=== PATIENT | female | born 1940 | race Caucasian/White ===

== ENCOUNTER → 2017-01-05 | Outpatient (CLI) | payer OTHER ==
[2017-01-05 12:58] LABS: BASOPHILS # (AUTO) 0.02 10*3/UL; BASOPHILS % (AUTO) 0.4 % (0-1); EOSINOPHILS % (AUTO) 0.4 % (0-8); HEMATOCRIT 39.2 % (37.0-47.0); HEMOGLOBIN 12.6 g/dL (12.0-16.0); IMM GRAN % (AUTO) 0.9 % (0-5); IMM GRAN# (AUTO) 0.04 10*3/UL; LYMPHOCYTES # (AUTO) 0.97 10*3/uL; LYMPHOCYTES % (AUTO) 21.3 % (10-50); MEAN CORPUSCULAR HEMOGLOBIN 31.5 PG (27-31); MEAN CORPUSCULAR HGB CONC 32.1 g/dL (33-37); MEAN PLATELET VOLUME 11.6 FL (7.4-12.2); MONOCYTES # (AUTO) 0.35 10*3/UL (0.3-0.8); MONOCYTES % (AUTO) 7.7 % (5-15); NEUTROPHILS # (AUTO) 3.16 10*3/UL; NEUTROPHILS % (AUTO) 69.3 % (50-80); RDW COEFFICIENT OF VARIATION 14.4 % (11.5-14.5); WHITE BLOOD COUNT 4.56 10^3/uL (4.8-10.8)
[2017-01-05 13:23] LABS: PLATELET MORPHOLOGY COMMENT NORMAL MORPHOLOGY (NORM)
[2017-01-05 13:33] LABS: LDL CHOLESTEROL,CALCULATED 37.6 mg/dL
[2017-01-05 13:38] LABS: BILIRUBIN,TOTAL 0.2 mg/dL (0.3-1.2); BUN/CREATININE RATIO 23.33 (6-20); CALCIUM 9.2 mg/dL (8.7-10.7); CREATININE 0.6 mg/dL (0.50-1.20); POTASSIUM 4.5 meq/L (3.8-5.2); TOTAL PROTEIN 6.3 g/dL (6.1-8.0)
[2017-01-05 14:26] LABS: HEMOGLOBIN A1C 6.26 % (4.2-6.0); MEAN BLOOD GLUCOSE (CALC) 122.458 mg/dL
== END ==
LOC: MOB LAB 11:25
PROVIDERS: ATTEND Internal Medicine
DX: E11.9 Type 2 diabetes mellitus without complications (principal); E78.5 Hyperlipidemia, unspecified; J44.9 Chronic obstructive pulmonary disease, unspecified; F17.210 Nicotine dependence, cigarettes, uncomplicated
CPT/HCPCS: 36415; 80053; 80061; 82550; 83036; 85025

== ENCOUNTER → 2017-02-12 | Outpatient (CLI) | payer OTHER ==
[2017-02-12 14:27] LABS: BASOPHILS # (AUTO) 0.01 10*3/UL; BASOPHILS % (AUTO) 0.1 % (0-1); EOSINOPHILS # (AUTO) 0.01 10*3/UL; EOSINOPHILS % (AUTO) 0.1 % (0-8); HEMATOCRIT 36.5 % (37.0-47.0); HEMOGLOBIN 12.2 g/dL (12.0-16.0); LYMPHOCYTES # (AUTO) 0.46 10*3/uL; MEAN CORPUSCULAR HGB CONC 33.4 g/dL (33-37); MEAN CORPUSCULAR VOLUME 95.8 FL (81-99); MEAN PLATELET VOLUME 12.4 FL (7.4-12.2); MONOCYTES % (AUTO) 7.4 % (5-15); NEUTROPHILS % (AUTO) 87.4 % (50-80); RED BLOOD COUNT 3.81 10^6/uL (4.20-5.40)
[2017-02-12 14:37] LABS: BILIRUBIN,URINE NEGATIVE (NEG); COLOR,URINE YELLOW; GLUCOSE, URINE (UA) NEGATIVE (NEG); NITRATE,URINE POSITIVE (NEG); PH,URINE 5.5 (5.0-8.5); PROTEIN,URINE NEGATIVE (NEG); UROBILINOGEN,URINE 0.2 mg/dL (0.2)
[2017-02-12 14:38] LABS: CLARITY,URINE SL. CLOUDY (CLEAR); OCCULT BLOOD,URINE TRACE (NEG)
[2017-02-12 14:38] LABS: CALCIUM 8.5 mg/dL (8.7-10.7)
[2017-02-12 14:42] LABS: SQUAMOUS EPITHELIAL CELL,UR RARE; URINE SAMPLE TYPE CLEAN CATCH URINE
[2017-02-12 14:43] LABS: BACTERIA,URINE MANY
[2017-02-12 15:03] LABS: PLATELET MORPHOLOGY COMMENT NORMAL MORPHOLOGY (NORM); RBC MORPHOLOGY COMMENT NORMAL MORPHOLOGY (NORM); WBC MORPHOLOGY COMMENT NORMAL MORPHOLOGY (NORM)
== END ==
LOC: MOB LAB 13:47
PROVIDERS: ATTEND Nurse Practitioner
DX: R63.4 Abnormal weight loss (principal); R30.0 Dysuria; F32.9 Major depressive disorder, single episode, unspecified; R82.99 Other abnormal findings in urine
CPT/HCPCS: 80048; 81001; 85025; 87077; 87088; 87186

== ENCOUNTER → 2017-02-26 | Outpatient (CLI) | payer OTHER | LOC: MMPC 10:00 | PROVIDERS: ATTEND Podiatrist Foot & Ankle Surgery | DX: L60.3 Nail dystrophy (principal); B35.1 Tinea unguium; E11.9 Type 2 diabetes mellitus without complications; I73.9 Peripheral vascular disease, unspecified; M21.6X1 Other acquired deformities of right foot; M20.12 Hallux valgus (acquired), left foot; M21.6X2 Other acquired deformities of left foot; M20.11 Hallux valgus (acquired), right foot; L60.9 Nail disorder, unspecified | CPT/HCPCS: 11755 ×2; 99213; G0463 ==

== ENCOUNTER 2017-03-31 16:43 | Inpatient (IN) | payer OTHER ==
[2017-03-31] MEDS ORDERED: ONDANSETRON 4 MG/2 ML VIAL IVP ONE (17:24)
[2017-03-31] MEDS ORDERED: Sodium Chloride 0.9% 1,000 ML PRIMARY IV ONE (17:24)
[2017-03-31] MEDS ORDERED: MORPHINE SULFATE 4 MG/1 ML IVP ONE (17:24)
--- NOTE | 2017-03-31 17:27 | PDOC ---
Nausea/Vomiting/Diarrhea HPI - General Chief Complaint: Nausea / Vomiting / Diarrhea Stated Complaint: VOMITING/DIARRHEA/WEAKNESS x5 DAYS Date Seen by Provider: 03/31/17 Time Seen by Provider: 17:22 Source: POSITIVE: Patient Exam Limitations: POSITIVE: No limitations Nurse's Notes Reviewed & Considered: Yes - History of Present Illness Initial Comments: This is a 76-year-old cachectic appearing female who is having vomiting. She is also complaining of abdominal pain in the suprapubic periumbilical and epigastric region. She has associated diarrhea. She denies any fevers but does have some sweats, she denies any chills. She denies any hematuria or dysuria. She denies any shortness of breath or chest pain. She does have a mild headache. Body Location Affected: REPORTS: Abdomen Timing: REPORTS: Constant Duration: Unknown Severity: Severe Quality: REPORTS: Cramping, "Pain" Abdominal Pain Onset Location: REPORTS: Epigastric, Periumbilical, Suprapubic Abdominal Pain Radiation: REPORTS: No radiation Context: REPORTS: None Modifying Factors: improves with: Nothing Associated Symptoms: REPORTS: Vomiting, Diarrhea, Abdominal Pain, Cramping Similar Symptoms Previously: No Recent Care Received: REPORTS: Denies Any Prior Injuries Related to Current Complaint?: No - Patient Home Medications Home Medications: Home Medications Multivitamin Tab [Thera Tab] 1 tab PO DAILY #30 tablet 01/10/15 Aspirin [Aspir 81] 1 tab PO DAILY tab 12/18/15 Lactose-Reduced Food [Ensure Plus] 8 oz PO 4-5X day #237 ml 12/18/15 Vit A,C & E/Lutein/Minerals [Ocuvite With Lutein Tablet] 1 each PO BID tab 07/25 Lisinopril 1 tab PO DAILY #30 tab 08/26/16 Pantoprazole Sodium 1 tab ORAL QD #30 tab 11/17/16 Oxycodone HCl/Acetaminophen [Oxycodone-Acetaminophen 10-325] 1 tab PO Q6H PRN # 120 tab 01/05/17 Tiotropium [place] [Spiriva] 1 puff INH DAILY #1 inh 02/11/17 Simvastatin 40 mg PO DAILY #30 tab 03/05/17 - Patient Allergies Allergies/Adverse Reactions: Allergies Allergy/AdvReac Type Severity Reaction Status Date / Time codeine [Codeine] Allergy Severe Anaphylaxis Verified 03/31/17 17:55 sulfamethoxazole Allergy NAUSEA Verified 03/31/17 17:55 [From Bactrim] trimethoprim [From Bactrim] Allergy NAUSEA Verified 03/31/17 17:55 Past Medical History - heen HEENT History: Cataracts, Dentures/Partials Additional HEENT History: wears glasses: unsure why Cardiovascular History: Hyperlipidemia Respiratory History: COPD, Other (please comment) Additional Respiratory History: CHRONIC BRONCHITIS Gastrointestinal History: GERD Genitourinary History: Denies History Endocrine History: Type 2 Diabetes (oral) Additional Endocrine History: says she stopped meds because she no longer has diabetes Musculoskeletal History: Arthritis, Muscle Weakness, Limited ROM, Other (please comment) Prosthesis or Implant: No Additional Musculoskeletal History: 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 Anesthesia Reactions: No Malignant Hyperthermia: No Significant Family History: No pertinent family hx ROS - Limitations ROS Limitations: No Limitations Constitution: REPORTS: Diaphoresis Cardiovascular: REPORTS: Denies Cardiac Symptoms Respiratory: REPORTS: Denies Resp Symptoms Neurological: REPORTS: Denies Neuro Symptoms Gastrointestinal: REPORTS: Abdominal Pain, Nausea, Vomitting, Diarrhea Endocrine: REPORTS: Fatigue Musculoskeletal: REPORTS: Denies MS Symptoms Genitourinary: REPORTS: Denies Symptoms Eyes: REPORTS: Denies Symptoms ENT: REPORTS: Denies Symptoms Skin: REPORTS: Denies Skin Symptoms Lympathic: REPORTS: Denies Lympathic Symptoms Immunologic: POSITIVE: Denies Symptoms Psychiatric: POSITIVE: Denies Psych Symptoms Nausea/Vomiting/Diarrhea Exam - General Appearance General Appearance: POSITIVE: Alert, Cooperative, No Evidence of Trauma, Anxious , Moderate Distress, Other (Cachectic appearing female with what bruises on her bilateral legs and arms.) - HEENT HEENT: POSITIVE: Head Inspection Nml, Eyes Inspection Nml, Ears Inspection Nml, Nose Inspection Nml, Oral/Dental Inspect. Nml, Pharynx Inspect. Nml, PERRL, EOMI - Neck Neck: POSITIVE: Supple, Normal Inspection, Non Tender - Respiratory Respiratory: POSITIVE: No Respiratory Distress, Breath Sounds Normal, Chest Non- Tender - Cardiovascular Cardiovascular: POSITIVE: Regular Rate and Rhythm, Heart Sounds Normal - Chest Chest: POSITIVE: Non Tender - Abdomen Abdomen: Soft: (All Quadrants), Normal Bowel Sounds: (All Quadrants), Tenderness Noted: (RLQ), (LLQ), (LUQ) - Back Back: POSITIVE: Normal Inspection - Skin Skin: POSITIVE: Intact, Normal For Race, Warm, Dry, No Rash - Extremities Extremity: Non-Tender: (All Extremities), Normal ROM: (All Extremities), Normal Inspection: (All Extremities), Pelvis Stable: (All Extremities) - Neurological / Psychological Neurological: POSITIVE: Affect Apporpriate, Oriented X3, Motor Normal, Sensation Normal N/V/D Progress - Results Reviewed by me Xrays/CTs/US Reviewed by me: Yes Discussed with Radiologist: Yes Lab Results Reviewed: Yes Lab Results:: Laboratory Results 03/31/17 03/31/17 03/31/17 Range/Units 18:19 18:35 19:00 WBC 10.28 (4.8-10.8) 10^3/uL RBC 3.67 L (4.20-5.40) 10^6/uL Hgb 12.0 (12.0-16.0) g/dL Hct 35.6 L (37.0-47.0) % MCV 97.0 (81-99) FL MCH 32.7 H (27-31) PG MCHC 33.7 (33-37) g/dL RDW Std Deviation 57.2 H (39-50) fL RDW Coeff of Eligio 16.8 H (11.5-14.5) % Plt Count 195 (140-350) 10*3/uL MPV 11.4 (7.4-12.2) FL Immature Gran % (Auto) 0.3 (0-5) % Neut % (Auto) 87.8 H (50-80) % Lymph % (Auto) 6.4 L (10-50) % Woods % (Auto) 5.4 (5-15) % Eos % (Auto) 0 (0-8) % Baso % (Auto) 0.1 (0-1) % Immature Gran # (Auto) 0.03 10*3/UL Neut # (Auto) 9.03 10*3/UL Lymph # (Auto) 0.66 10*3/uL Woods # (Auto) 0.55 (0.3-0.8) 10*3/UL Eos # (Auto) 0 10*3/UL Baso # (Auto) 0.01 10*3/UL WBC Morphology Comment Normal morphology (NORM) Plt Morphology Comment Normal morphology (NORM) RBC Morph Comment Normal morphology (NORM) PT 13.6 H (9.7-11.4) secs INR 1.31 (0.00-5.90) N/A VBG pH (7.32-7.42) VBG pCO2 (45-55) mmHg VBG HCO3 (22-26) mmol/L VBG Base Excess (-2-2) MMOL/L Sodium 136 (135-145) meq/L Potassium 4.2 (3.8-5.2) meq/L Chloride 106 (98-112) meq/L Carbon Dioxide 25 (23-33) meq/L Anion Gap 5 (5-20) BUN 7 (7-22) mg/dL Creatinine 0.8 (0.50-1.20) mg/dL Estimated GFR (>60 ml/min/1.73m(2)) BUN/Creatinine Ratio 8.75 (6-20) Glucose 148 H (78-110) mg/dL Calculated Osmolality 282.0 (267-292) mOsm/kg Lactic Acid 2.6 H (0.70-2.10) MMOL/L Calcium 7.3 L (8.7-10.7) mg/dL Magnesium 1.5 L (1.6-2.4) mg/dL Total Bilirubin 0.4 (0.3-1.2) mg/dL AST 48 H (8-39) IU/L ALT 54 H (9-52) IU/L Alkaline Phosphatase 144 H (38-126) IU/L Troponin I < 0.012 (< 0.040) ng/mL C-Reactive Protein 0.5 (0.0-0.9) mg/dL NT-Pro-B Natriuret Pep 975 H (0-450) PG/ML Total Protein 4.3 L (6.1-8.0) g/dL Albumin 1.7 L (3.5-4.8) g/dL Globulin 2.6 (2.50-4.10) g/dL Albumin/Globulin Ratio 0.60 L (1.3-2.0) mg/g Ur Collection Type Urine Color Urine Clarity (CLEAR) Urine pH (5.0-8.5) Ur Specific [place] (1.005-1.030) Urine Protein (NEG) mg/dl Urine Glucose (UA) (NEG) mg/dL Urine Ketones (NEG) Urine Occult Blood (NEG) Urine Nitrate (NEG) Urine Bilirubin (NEG) Urine Urobilinogen (0.2) EU/dL Ur Leukocyte Esterase (NEG) Urine RBC (NONE) /hpf Urine WBC (NONE) Ur Squamous Epith Cells (NONE) Ur Renal Epithelial Cell (NONE) Urine Crystals Urine Bacteria (NONE) Urine Casts (NONE) Urine Mucus (NONE) Urine Trichomonas (NONE) Urine Yeast (NONE) Ur Culture Indicated? 03/31/17 03/31/17 Range/Units 19:06 20:25 WBC (4.8-10.8) 10^3/uL RBC (4.20-5.40) 10^6/uL Hgb (12.0-16.0) g/dL Hct (37.0-47.0) % MCV (81-99) FL MCH (27-31) PG MCHC (33-37) g/dL RDW Std Deviation (39-50) fL RDW Coeff of Eligio (11.5-14.5) % Plt Count (140-350) 10*3/uL MPV (7.4-12.2) FL Immature Gran % (Auto) (0-5) % Neut % (Auto) (50-80) % Lymph % (Auto) (10-50) % Woods % (Auto) (5-15) % Eos % (Auto) (0-8) % Baso % (Auto) (0-1) % Immature Gran # (Auto) 10*3/UL Neut # (Auto) 10*3/UL Lymph # (Auto) 10*3/uL [place] # (Auto) (0.3-0.8) 10*3/UL Eos # (Auto) 10*3/UL Baso # (Auto) 10*3/UL WBC Morphology Comment (NORM) Plt Morphology Comment (NORM) RBC Morph Comment (NORM) PT (9.7-11.4) secs INR (0.00-5.90) N/A VBG pH 7.36 (7.32-7.42) VBG pCO2 39 L (45-55) mmHg VBG HCO3 22 (22-26) mmol/L VBG Base Excess -3 L (-2-2) MMOL/L Sodium (135-145) meq/L Potassium (3.8-5.2) meq/L Chloride (98-112) meq/L Carbon Dioxide (23-33) meq/L Anion Gap (5-20) BUN (7-22) mg/dL Creatinine (0.50-1.20) mg/dL Estimated GFR (>60 ml/min/1.73m(2)) BUN/Creatinine Ratio (6-20) Glucose (78-110) mg/dL Calculated Osmolality (267-292) mOsm/kg Lactic Acid (0.70-2.10) MMOL/L Calcium (8.7-10.7) mg/dL Magnesium (1.6-2.4) mg/dL Total Bilirubin (0.3-1.2) mg/dL AST (8-39) IU/L ALT (9-52) IU/L Alkaline Phosphatase (38-126) IU/L Troponin I (< 0.040) ng/mL C-Reactive Protein (0.0-0.9) mg/dL NT-Pro-B Natriuret Pep (0-450) PG/ML Total Protein (6.1-8.0) g/dL Albumin (3.5-4.8) g/dL Globulin (2.50-4.10) g/dL Albumin/Globulin Ratio (1.3-2.0) mg/g Ur Collection Type Cath specimen Urine Color Yellow Urine Clarity Slightly cloudy (CLEAR) Urine pH 5.5 (5.0-8.5) Ur Specific [place] <=1.005 (1.005-1.030) Urine Protein Negative (NEG) mg/dl Urine Glucose (UA) Negative (NEG) mg/dL Urine Ketones Negative (NEG) Urine Occult Blood Trace-intact H (NEG) Urine Nitrate Positive H (NEG) Urine Bilirubin Negative (NEG) Urine Urobilinogen 0.2 (0.2) EU/dL Ur Leukocyte Esterase Moderate (NEG) Urine RBC 0-1 (NONE) /hpf Urine WBC 5-10 (NONE) Ur Squamous Epith Cells None (NONE) Ur Renal Epithelial Cell None (NONE) Urine Crystals None Urine Bacteria Many (NONE) Urine Casts None (NONE) Urine Mucus None (NONE) Urine Trichomonas None (NONE) Urine Yeast None (NONE) Ur Culture Indicated? Culture set - Patient's Progress Pain Medication Addressed: POSITIVE: Yes Re-examine Time: 20:54 Status: POSITIVE: Improved MDM / ED Course: Patient was evaluated, an IV started after much difficulty, blood drawn and sent to the lab for studies which included blood cultures, radiographic examinations were obtained. Patient received 2 L of normal saline, morphine sulfate, Zofran, 2 g of Rocephin. Findings: CBC shows white count 10.28 , hemoglobin was at 12, magnesium was low at 1.5, urine shows nitrite positive, comprehensive metabolic panel shows calcium slightly low, LFTs elevated, alkaline phosphatase is also elevated. CT scan shows perinephric fat stranding present, thickening and enhancement of the stomach wall consistent with gastritis, possible cholelithiasis. Bilateral pleural effusions. Assessment: #1 pyelonephritis. #2 gastritis. #3 hypomagnesemia. Plan: Admission, IV antibiotics, hydration. - Consult Consult (If Yes, Name of Consulting MD & Time Called): Yes (Dr. Lu [id number]) Consulting MD will see pt:: POSITIVE: [facility] [place] Admit Counseled: POSITIVE: Patient, RE: Lab Results, RE: Radiology Results, RE: DX Patient Care Time - Estimated PCT Patient Care Time (In Minutes): 45 Vital Signs - VS Reviewed Vital Signs Reviewed: Yes Discharge Clinical Impression: Gastroenteritis, Nausea and vomiting, UTI (urinary tract infection), Pleural effusion Discharge Disposition: Admit to Inpatient Condition: Stable Date Decision to Admit to Inpatient: 03/31/17 Time Decision to Admit to Inpatient: 20:53
[2017-03-31 18:22] LABS: BASOPHILS # (AUTO) 0.01 10*3/UL; BASOPHILS % (AUTO) 0.1 % (0-1); EOSINOPHILS # (AUTO) 0 10*3/UL; EOSINOPHILS % (AUTO) 0 % (0-8); HEMATOCRIT 35.6 % (37.0-47.0); LYMPHOCYTES # (AUTO) 0.66 10*3/uL; MEAN CORPUSCULAR HEMOGLOBIN 32.7 PG (27-31); MEAN CORPUSCULAR HGB CONC 33.7 g/dL (33-37); MEAN PLATELET VOLUME 11.4 FL (7.4-12.2); MONOCYTES # (AUTO) 0.55 10*3/UL (0.3-0.8); MONOCYTES % (AUTO) 5.4 % (5-15); NEUTROPHILS # (AUTO) 9.03 10*3/UL; NEUTROPHILS % (AUTO) 87.8 % (50-80); RED BLOOD COUNT 3.67 10^6/uL (4.20-5.40)
[2017-03-31 18:30] LABS: PLATELET MORPHOLOGY COMMENT NORMAL MORPHOLOGY (NORM); RBC MORPHOLOGY COMMENT NORMAL MORPHOLOGY (NORM); WBC MORPHOLOGY COMMENT NORMAL MORPHOLOGY (NORM)
[2017-03-31 19:18] LABS: VENOUS PH 7.36 (7.32-7.42)
[2017-03-31 19:25] LABS: BUN/CREATININE RATIO 8.75 (6-20); C-REACTIVE PROTEIN 0.5 mg/dL (0.0-0.9); CALCIUM 7.3 mg/dL (8.7-10.7); MAGNESIUM 1.5 mg/dL (1.6-2.4); SERUM ALBUMIN 1.7 g/dL (3.5-4.8)
[2017-03-31] MEDS ORDERED: Magnesium Sulfate 2gm (Premix) 2 GM in Premix 1 BAG IV ONE (20:08)
[2017-03-31 20:22] LABS: BILIRUBIN,URINE NEGATIVE (NEG); CLARITY,URINE Slightly Cloudy (CLEAR); COLOR,URINE YELLOW; GLUCOSE, URINE (UA) NEGATIVE (NEG); NITRATE,URINE POSITIVE (NEG); OCCULT BLOOD,URINE Trace-intact (NEG); PH,URINE 5.5 (5.0-8.5); PROTEIN,URINE NEGATIVE (NEG); UROBILINOGEN,URINE 0.2 EU/dL (0.2)
[2017-03-31 20:26] LABS: BACTERIA,URINE MANY; RBC,URINE 0-1 /hpf; URINE SAMPLE TYPE CATH SPECIMEN
--- NOTE | 2017-03-31 20:28 | DI ---
CT ABDOMEN SCAN WITH IV CONTRAST, 03/31/2017 5:24 PM : Clinical History: Abdominal pain with nausea and vomiting. Previous Exam: 09/23/2016. Scans are performed from the lower lung bases through the liver and kidneys with IV contrast. 75 ml o f Isovue 300 was injected IV. No oral or rectal contrast was ordered. There are bilateral small pleural effusions, slightly larger on the left side in the right. No acute infiltrate is present in the lower lobes. The heart shows calcifications in the LAD, left circumflex artery, and right coronary artery. No obvious clot is seen in in the visualized portions of the left atrium or the left ventricle. The stomach is normal in size but shows marked enhancement suggesting t here may be an acute gastritis. The liver is normal. In the dependent portion of the body of the gall bladder is a small high density lesion that may represent a small gallstone in the range of 3-5 mm. T here is no edema of the gallbladder wall to indicate acute cholecystitis. The right adrenal gland, sp joseph, and pancreas are normal. The pancreas does appear atrophic and there are calcifications but the se are in the splenic artery. There is a 15 mm mass in the left adrenal gland. Both kidneys are marc l in size, shape, position and contour. Perfusion to the right kidney is normal. In the left kidney, there is absent perfusion of the lower pole medullary and cortical tissue. Comparison with the previo us study shows it this area had a normal perfusion pattern. Extensive vascular calcifications are pre sent in both kidneys. The differential for the defect would be between an acute renal infarct versus pyelonephritis. There is some stranding in the perinephric fat of the left kidney. There is no hydron ephrosis or hydroureter. No renal or ureteral calculi are present. There are no abnormal retrocrural or periaortic nodes. There is a trace amount of ascites in Morison's pouch surrounding the gallbladde r. READIN. The stomach is normal in size but shows diffuse enhancement suggesting there may be diffuse mucos al thickening secondary to acute gastritis. 2. There is a perfusion defect in the lower and posterior aspect of the left kidney that is new sinc e the previous CT scan from 09/23/2016. Perinephric stranding is present in the perinephric fat in th e differential for the defect and the stranding would be between pyelonephritis and a renal infarct. Extensive vascular calcifications are present in both kidneys. 3. Small bilateral pleural effusions, slightly larger on the left side than the right. Coronary arjun ry disease manifested by calcifications in the LAD, left circumflex artery, and the right coronary ar caprice. No obvious clot is seen in either in the left ventricle or in the left atrium. 4. Minimal ascites in Morison's pouch. 5. Possible cholelithiasis. CT PELVIS SCAN WITH IV CONTRAST, 03/31/2017 5:24 PM: Clinical History: See above. Previous Exam: 09/23/2016. Scans are performed from just superior to the umbilicus to the symphysis pubis with IV contrast. This is the same bolus of contrast used for the CT scans of the abdomen. Scans through the lower abdomen and pelvis show no masses. There is a small amount of ascites in the pelvis. There is no adenopathy. New the ileocecal valve nor the appendix are identified with certaint y. There is no inflammatory mass either in the right lower quadrant or in the region where the cecum would be located. The small bowel and colon show normal enhancement throughout. There are no hernias. The patient is status post hysterectomy and bilateral salpingo-oophorectomy. READING: Except for a small amount of ascites, the study is normal.
[2017-03-31] MEDS ORDERED: Pantoprazole Inj 40 MG in Normal Saline Flush 10 ML IVP ONE (20:51)
[2017-03-31] MEDS ORDERED: cefTRIAXone Inj 2 GM in Sodium Chloride 0.9% 100 ML IV ONE (20:51)
--- NOTE | 2017-03-31 21:17 | EKG ---
[address] [place] [address] Measurements Intervals [place] Rate: 74 P: 78 VA: 154 QRS: 35 QRSD: 68 T: 60 QT: 405 QTc: 433 Interpretive Statements SINUS RHYTHM WITH OCCASIONAL SUPRAVENTRICULAR PREMATURE COMPLEXES LOW QRS VOLTAGE [QRS DEFLECTION < 0.5/1.0 mV IN LIMB/CHEST LEADS] Compared to ECG 11/20/2014 16:36:47 T-wave abnormality no longer present Electronically Signed On 04-01-17 07:50:07 MDT by Marcelo Corbin MD [email or web address]
[2017-03-31] MEDS ORDERED: oxyCODONE/APAP 10/325 Tab 1 EACH TAB PO PRN (22:00)
[2017-03-31] MEDS ORDERED: LACTOSE REDUCED FOOD PO SCH (22:00)
[2017-03-31] MEDS ORDERED: Magnesium Sulfate 1gm (Premix) 1 GM in Dextrose 1 BAG IV ONE (22:00)
[2017-03-31] MEDS ORDERED: [UNRECOGNIZED DRUG - OTHER] PO SCH (22:00)
[2017-03-31] MEDS ORDERED: LIDOCAINE W/ SODIUM BICARB 0.5 ML SYR SUBD PRN (22:00)
[2017-03-31] MEDS: HEPARIN 5000 UNIT/1 ML SUBCUT SCH (22:42)
[2017-03-31] MEDS: Cefotaxime Inj 2 GM in Sodium Chloride 0.9% 100 ML IV SCH (22:42)
--- NOTE | 2017-03-31 23:06 | DI ---
AP /LATERAL CHEST X-RAY, 03/31/2017 8:11 PM : Clinical History: Cachexia. Previous Exam: 12/25/2014. There is no acute soft tissue or bony abnormality. The patient is status post ORIF of a fracture of t he surgical neck of the right humerus. Heart size is normal. There is no acute infiltrate. There are bilateral small pleural effusions, larger on the left side than the right. There is left lower lobe a telectasis. Mediastinal structures are normal. There are no pulmonary nodules. Readin. Small bilateral pleural effusions, larger on the left side than the right. There is some left low er lobe atelectasis. 2. The remainder of the exam is normal.
[2017-04-01 05:11] LABS: BASOPHILS # (AUTO) 0.01 10*3/UL; BASOPHILS % (AUTO) 0.1 % (0-1); EOSINOPHILS # (AUTO) 0.01 10*3/UL; EOSINOPHILS % (AUTO) 0.1 % (0-8); HEMATOCRIT 34.9 % (37.0-47.0); HEMOGLOBIN 11.7 g/dL (12.0-16.0); LYMPHOCYTES # (AUTO) 0.83 10*3/uL; MEAN CORPUSCULAR HEMOGLOBIN 32.1 PG (27-31); MEAN CORPUSCULAR HGB CONC 33.5 g/dL (33-37); MEAN CORPUSCULAR VOLUME 95.6 FL (81-99); MONOCYTES # (AUTO) 0.54 10*3/UL (0.3-0.8); MONOCYTES % (AUTO) 7.7 % (5-15); NEUTROPHILS # (AUTO) 5.59 10*3/UL; NEUTROPHILS % (AUTO) 79.9 % (50-80); RED BLOOD COUNT 3.65 10^6/uL (4.20-5.40)
[2017-04-01 05:21] LABS: PLATELET MORPHOLOGY COMMENT NORMAL MORPHOLOGY (NORM); RBC MORPHOLOGY COMMENT NORMAL MORPHOLOGY (NORM); WBC MORPHOLOGY COMMENT NORMAL MORPHOLOGY (NORM)
[2017-04-01 05:23] LABS: BUN/CREATININE RATIO 8.57 (6-20); CALCIUM 7.3 mg/dL (8.7-10.7); SERUM ALBUMIN 1.8 g/dL (3.5-4.8)
[2017-04-01] MEDS: HEPARIN 5000 UNIT/1 ML SUBCUT SCH ×3 (05:27→21:54)
[2017-04-01] MEDS: TIOTROPIUM BROMIDE 18 MCG CAPSULE INH SCH (07:10)
[2017-04-01] MEDS ORDERED: Simvastatin Tab 40 MG TAB PO SCH ×2 (09:00→21:00)
[2017-04-01] MEDS: Pantoprazole Inj 40 MG in Normal Saline Flush 10 ML IVP SCH ×2 (09:31→20:22)
[2017-04-01] MEDS: ASPIRIN EC 81 MG TABLET PO SCH (09:32)
[2017-04-01] MEDS: LISINOPRIL 5 MG TABLET PO SCH ×2 (09:33→09:38)
[2017-04-01] MEDS: Cefotaxime Inj 2 GM in Sodium Chloride 0.9% 100 ML IV SCH (10:11)
--- NOTE | 2017-04-01 11:11 | DI ---
ABDOMINAL ULTRASOUND, 04/01/2017 7:00 AM: Clinical History: Cholelithiasis. Previous Exam: None at this facility. Comparison is made with the CT scan of the abdomen and pelvis f rom 03/31/2017. Scans are performed through the right and left upper quadrants in multiple projections. The gallbladder is well distended and has a normal wall thickness. There are at least 2 small gallsto kiran present and these are associated with acoustical shadowing. There is no evidence of acute cholecy stitis. No Gutierrez's sign is elicited. A small amount of fluid is present in Morison pouch. Common mima e duct measures 2 mm. The visualized portions of the right and left lobes of the liver and the spleen are normal. Both kidneys are of normal shape, position, and contour. The right kidney measures 100 m m and the left kidney measures 92 mm. There is no hydronephrosis or hydroureter. There is vascular fl ow to both kidneys although there is insufficient resolution to detect whether there is absent flow i n the posterior and inferior aspect of the left kidney as was seen on the CT scan from the day before . The head, neck, and proximal body of the pancreas are visualized and that structure is normal. The IVC and aorta are normal. There are bilateral pleural effusions. READIN. Cholelithiasis without evidence of cholecystitis. There is no Gutierrez's sign. 2. There is a trace amount of ascites in Morison's pouch and over the dome of the liver. 3. The liver, spleen, pancreas and both kidneys have a normal appearance. No abnormality is seen in the lower pole of the left kidney where a perfusion defect was noted on the CT scan from the day befo re. The aorta and IVC are also normal. 4. Small bilateral pleural effusions.
[2017-04-01] MEDS: NICOTINE 21 MG /DAY PATCH TRANSDERM SCH (15:44)
[2017-04-01] MEDS ORDERED: cefTRIAXone Inj 2 GM in Sodium Chloride 0.9% 100 ML IV SCH (20:00)
[2017-04-01] MEDS ORDERED: Magnesium Sulfate 2gm (Premix) 2 GM in Premix 1 BAG IV ONE (22:13)
--- NOTE | 2017-04-01 22:26 | PDOC ---
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 She comes in complaining of not feeling well for the past week. She states that she's had some nausea, intermittent vomiting, and diarrhea. She denies any chest pain, shortness breath or cough. She is on a standard oxygen at 2 L per nasal cannula. She states she is just not been feeling very well and she is only been able to eat Ensure. She denied abdominal pain and states that the Ensure just "runs right through me". She does admit to depression, and states that she wants to be discharged to a half-way after discharge. She states she still weak, deconditioned, and her endurance is significantly limited. She denies fever or chills. She states she is trying to eat and try to ensure as her interventions, and she's not sure what is making her symptoms worse. Her labs were notable for albumin level that is below 2. It has been gradually declining since 2013. I will note , that in addition to her depression, she states she just has not been able to see any improvements with antidepressants. Aside from a CT scan showing possible renal infarct which not to be the case with ultrasound, possible cholecystitis, which again appeared negative on ultrasound, the imaging was significant for bilateral small pleural effusions. There did not appear to be any obstruction or pancreatitis issues. Past Medical History Medical History: 1. Dependent COPD, 2 L per nasal cannula, chronic hypoxemic respiratory failure. 2. Diabetes is, diet-controlled. 3. protein Calorie Malnutrition. 4. History of oral cancer with previous radiation and chemotherapy. 5. History of pleural effusion that was drained back in past. 6. Hx of cavitary lesion on chest CT in past. 7. History of alcohol abuse in the past, denies alcohol use today. 8. History of Humoral fracture status post open reduction and internal fixation back in June 2014. Surgical History: 1. neck surgery in 2013. 2. . 3. carpal tunnel release. 4. cataract surgery. 5. thoracentesis of lung in 2013 Family History: Reviewed an Not Pertinent Pertinent Family History: significant for coronary artery disease Past Social History: smokes, quit drinking a year ago. has healthy children, and a daughter in [place], [place]. Lives with a significant other, Ed. Tobacco Use: Current Every Day Smoker Substance Use Type: None Alcohol Use: Other (history of alcohol use/abuse, quit in 2013) Medication / Allergies Home Medications: Home Medications Medication Instructions Recorded Confirmed Type Multivitamin Tab [Thera Tab] 1 tab PO DAILY #30 tablet 01/10/15 03/31/17 Rx Aspirin [Aspir 81] 1 tab PO DAILY tab 12/18/15 03/31/17 History Lactose-Reduced Food [Ensure Plus] 8 oz PO 4-5X day #237 ml 12/18/15 03/31/17 Clinic Vit A,C & E/Lutein/Minerals 1 each PO BID tab 12/18/15 03/31/17 History [Ocuvite With Lutein Tablet] Lisinopril 1 tab PO DAILY #30 tab 08/26/16 03/31/17 Clinic Pantoprazole Sodium 1 tab ORAL QD #30 tab 11/17/16 03/31/17 Clinic Oxycodone HCl/Acetaminophen 1 tab PO Q6H PRN #120 tab 01/05/17 03/31/17 Clinic [Oxycodone-Acetaminophen 10-325] Tiotropium [place] [Spiriva] 1 puff INH DAILY #1 inh 02/11/17 03/31/17 Clinic Simvastatin 40 mg PO DAILY #30 tab 03/05/17 03/31/17 Clinic Allergies/Adverse Reactions: Allergies Allergy/AdvReac Type Severity Reaction Status Date / Time codeine [Codeine] Allergy Severe Anaphylaxis Verified 03/31/17 17:55 sulfamethoxazole Allergy NAUSEA Verified 03/31/17 17:55 [From Bactrim] trimethoprim [From Bactrim] Allergy NAUSEA Verified 03/31/17 17:55 Review of Systems - Review of Systems All Systems: Reviewed & No Additional Complaints Except as Stated (I did a 12 point review of systems and it was negative exept as per HPI) Exam - Vitals Vital Signs: Vital Signs Temperature 98.6 F Temperature Source Temporal Artery Scan Pulse Rate [Pulse Oximeter] 84 Pulse Rate 82 Respiratory Rate 20 Blood Pressure [Right Arm] 139/52 Pulse Ox 95 Oxygen Flow Rate 2 Oxygen Delivery Method Nasal Cannula Height 5 ft 4 in Weight 100 lb 3.2 oz - General General Appearance: POSITIVE: No Acute Distress, Cooperative, Thin - Head Head Exam: POSITIVE: Normal Inspection, Normocephalic, Atraumatic - Eye Eye Exam: POSITIVE: EOMI, No Scleral Icterus - ENT ENT Exam: POSITIVE: Mucous Membranes Dry - Neck Neck Exam: POSITIVE: Normal Inspection, No Tenderness, No Thyromegaly - Respiratory Respiratory Exam: POSITIVE: Breathing Non Labored, Normal to Percussion and Palpation, Decreased Breath Sounds - Cardiovascular Cardiovascular Exam: POSITIVE: RRR, No Murmur, No Clicks, No Gallops, No Rubs, No JVD - GI/Abdominal GI/Abdominal Exam: POSITIVE: Normal Bowel Sounds, Non Tender, Non Distended, Soft - Rectal Rectal Exam: POSITIVE: Deferred - External Exam: POSITIVE: Deferred Exam: POSITIVE: Cummings Catheter in Place (I had cummings catheter put in because the bladder looked markedly distended on CT scan of abdomen and pelvis, PVR was 450 mL, urine looks clear.) - Extremities Extremities Exam: POSITIVE: No Edema Present, No Cyanosis Present, Clubbing Present - Back Back Exam: POSITIVE: No CVA Tenderness - Neurological Neurological Exam: POSITIVE: Alert, Oriented x 3, No Facial Droop, Speech Intact / Clear, Moves All Extremities Equally Additional Neurological Exam Details: globally very weak - Psychiatric Psychiatric Exam: POSITIVE: Flat Affect, Depressed - Integumentary Integumentary Exam: POSITIVE: Normal Color, Warm, Intact Additional Integumentary Exam Details: stasis color changes in lower extremities, on the left, scarring from prior ulcer. - Central Line Examination Central Line Present on Admission: No Results - Labs CBC and BMP: 04/01/17 04:25 04/01/17 04:25 Labs - Last 24 Hours: Laboratory Results 04/01/17 Range/Units 04:25 WBC 7.01 (4.8-10.8) 10^3/uL RBC 3.65 L (4.20-5.40) 10^6/uL Hgb 11.7 L (12.0-16.0) g/dL Hct 34.9 L (37.0-47.0) % MCV 95.6 (81-99) FL MCH 32.1 H (27-31) PG MCHC 33.5 (33-37) g/dL RDW Std Deviation 54.9 H (39-50) fL RDW Coeff of Eligio 16.6 H (11.5-14.5) % Plt Count 175 (140-350) 10*3/uL MPV 12.0 (7.4-12.2) FL Immature Gran % (Auto) 0.4 (0-5) % Neut % (Auto) 79.9 (50-80) % Lymph % (Auto) 11.8 (10-50) % [place] % (Auto) 7.7 (5-15) % Eos % (Auto) 0.1 (0-8) % Baso % (Auto) 0.1 (0-1) % Immature Gran # (Auto) 0.03 10*3/UL Neut # (Auto) 5.59 10*3/UL Lymph # (Auto) 0.83 10*3/uL [place] # (Auto) 0.54 (0.3-0.8) 10*3/UL Eos # (Auto) 0.01 10*3/UL Baso # (Auto) 0.01 10*3/UL WBC Morphology Comment Normal morphology (NORM) Plt Morphology Comment Normal morphology (NORM) RBC Morph Comment Normal morphology (NORM) Sodium 136 (135-145) meq/L Potassium 4.0 (3.8-5.2) meq/L Chloride 107 (98-112) meq/L Carbon Dioxide 26 (23-33) meq/L Anion Gap 3 L (5-20) BUN 6 L (7-22) mg/dL Creatinine 0.7 (0.50-1.20) mg/dL Estimated GFR (>60 ml/min/1.73m(2)) BUN/Creatinine Ratio 8.57 (6-20) Glucose 102 (78-110) mg/dL Calculated Osmolality 279.0 (267-292) mOsm/kg Calcium 7.3 L (8.7-10.7) mg/dL Total Bilirubin 0.4 (0.3-1.2) mg/dL AST 48 H (8-39) IU/L ALT 52 (9-52) IU/L Alkaline Phosphatase 161 H (38-126) IU/L Total Protein 4.4 L (6.1-8.0) g/dL Albumin 1.8 L (3.5-4.8) g/dL Globulin 2.6 (2.50-4.10) g/dL Albumin/Globulin Ratio 0.60 L (1.3-2.0) mg/g - EKG Data -: EKG Interpreted by Me Rate: Normal EKG Shows Normal: Sinus Rhythm - EKG Data EKG Interpretation: Other (Voltage appears low on this EKG) - Imaging Status: Image Reviewed by Me (CXR, on my view, shows effusions bilaterally, no pneumonia CT of abdomen and pelvis, there are bilateral effusions, small, no infiltrate. Bladder appears large) Assessment and Plan - Patient Problems (1) UTI (urinary tract infection) Current Visit: Yes Status: Acute Qualifiers: Urinary tract infection type: acute cystitis Hematuria presence: without hematuria Qualified Description: Acute cystitis without hematuria Qualifier Code(s): (N30.00) Acute cystitis without hematuria (2) Weakness Current Visit: Yes Status: Acute (3) Pleural effusion Current Visit: Yes Status: Acute (4) End stage COPD Current Visit: Yes Status: Acute (5) Severe protein-calorie malnutrition Current Visit: Yes Status: Acute (6) Hypomagnesemia Current Visit: Yes Status: Acute - Assessment / Plan Additional Assessment/Plan Details: admit IV fluids initially as patient appears dehydrated check pre-albumin, get nutrition consult UA looks consistent with UTI, treat empirically with IV antibiotics until we can see what the bug is, then adjust and narrow spectrum PT and OT check labs tomorrow with depression, may need to take a step back and re-evaluate what might work. lexapro and remeron not helping. may need SNF placement? get ECHO with effusions. However, I suspect they are related to severe protein calorie malnutrition. overall prognosis guarded. I discussed CPR wishes and patient stated she is DO NOT RESUSITATE Photo / Body Diagrams - Uploaded Photos Uploaded Photos:
[2017-04-02] MEDS: ACETAMINOPHEN 325 MG TABLET PO PRN ×3 (04:19→22:03)
[2017-04-02 05:23] LABS: BASOPHILS # (AUTO) 0.01 10*3/UL; BASOPHILS % (AUTO) 0.1 % (0-1); EOSINOPHILS # (AUTO) 0.02 10*3/UL; EOSINOPHILS % (AUTO) 0.2 % (0-8); HEMATOCRIT 34.2 % (37.0-47.0); HEMOGLOBIN 11.7 g/dL (12.0-16.0); LYMPHOCYTES # (AUTO) 0.87 10*3/uL; MEAN CORPUSCULAR HEMOGLOBIN 32.6 PG (27-31); MEAN CORPUSCULAR HGB CONC 34.2 g/dL (33-37); MEAN CORPUSCULAR VOLUME 95.3 FL (81-99); MEAN PLATELET VOLUME 11.8 FL (7.4-12.2); MONOCYTES % (AUTO) 8.4 % (5-15); NEUTROPHILS # (AUTO) 6.68 10*3/UL; NEUTROPHILS % (AUTO) 80.7 % (50-80); RED BLOOD COUNT 3.59 10^6/uL (4.20-5.40)
[2017-04-02 05:27] LABS: PLATELET MORPHOLOGY COMMENT NORMAL MORPHOLOGY (NORM); RBC MORPHOLOGY COMMENT NORMAL MORPHOLOGY (NORM); WBC MORPHOLOGY COMMENT NORMAL MORPHOLOGY (NORM)
[2017-04-02 05:47] LABS: BUN/CREATININE RATIO 8.57 (6-20); CALCIUM 7.3 mg/dL (8.7-10.7); MAGNESIUM 2.3 mg/dL (1.6-2.4); SERUM ALBUMIN 1.6 g/dL (3.5-4.8)
[2017-04-02] MEDS: HEPARIN 5000 UNIT/1 ML SUBCUT SCH ×2 (05:57→14:47)
[2017-04-02 06:03] LABS: FREE T4 (FREE THYROXINE) 1.06 ng/dL (0.93-1.71)
[2017-04-02] MEDS: TIOTROPIUM BROMIDE 18 MCG CAPSULE INH SCH (06:31)
[2017-04-02] MEDS: VENLAFAXINE XR 37.5 MG CAP PO SCH (08:46)
[2017-04-02] MEDS: ASPIRIN EC 81 MG TABLET PO SCH (08:47)
[2017-04-02] MEDS ORDERED: PNEUMOCOCCAL 23 VACCINE 25 MCG/0.5 ML VIAL IM SCH (09:00)
[2017-04-02] MEDS ORDERED: CEPHALEXIN 500 MG CAPSULE PO ONE (11:32)
--- NOTE | 2017-04-02 11:41 | PDOC(PROG) ---
Date and Time of Service: 04/02/2017, 1135 Interval History: No complaints of chest pain. No shortness breath. She is asking for some oxycodone from the nurse today, but I don't know what she is on this for. I reviewed her clinic notes and I don't see that she's had a chronic pain diagnosis. She did have a neck surgery a few years ago and may have continued neck pain, but has some right-sided weakness that she's noticed. She states she is not swallowing very well and sometimes things get stuck. 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 No nausea or vomiting today. Feels slightly stronger but is globally weak. Objective : Data - Labs CBC and BMP: 04/02/17 04:58 04/02/17 04:58 Labs - Last 24 Hours: Laboratory Results 04/02/17 Range/Units 04:58 WBC 8.29 (4.8-10.8) 10^3/uL RBC 3.59 L (4.20-5.40) 10^6/uL Hgb 11.7 L (12.0-16.0) g/dL Hct 34.2 L (37.0-47.0) % MCV 95.3 (81-99) FL MCH 32.6 H (27-31) PG MCHC 34.2 (33-37) g/dL RDW Std Deviation 55.6 H (39-50) fL RDW Coeff of Eligio 16.9 H (11.5-14.5) % Plt Count 169 (140-350) 10*3/uL MPV 11.8 (7.4-12.2) FL Immature Gran % (Auto) 0.1 (0-5) % Neut % (Auto) 80.7 H (50-80) % Lymph % (Auto) 10.5 (10-50) % [place] % (Auto) 8.4 (5-15) % Eos % (Auto) 0.2 (0-8) % Baso % (Auto) 0.1 (0-1) % Immature Gran # (Auto) 0.01 10*3/UL Neut # (Auto) 6.68 10*3/UL Lymph # (Auto) 0.87 10*3/uL [place] # (Auto) 0.70 (0.3-0.8) 10*3/UL Eos # (Auto) 0.02 10*3/UL Baso # (Auto) 0.01 10*3/UL WBC Morphology Comment Normal morphology (NORM) Plt Morphology Comment Normal morphology (NORM) RBC Morph Comment Normal morphology (NORM) Sodium 135 (135-145) meq/L Potassium 4.7 (3.8-5.2) meq/L Chloride 108 (98-112) meq/L Carbon Dioxide 25 (23-33) meq/L Anion Gap 2 L (5-20) BUN 6 L (7-22) mg/dL Creatinine 0.7 (0.50-1.20) mg/dL Estimated GFR (>60 ml/min/1.73m(2)) BUN/Creatinine Ratio 8.57 (6-20) Glucose 98 (78-110) mg/dL Calculated Osmolality 277.0 (267-292) mOsm/kg Calcium 7.3 L (8.7-10.7) mg/dL Magnesium 2.3 (1.6-2.4) mg/dL Total Bilirubin 0.4 (0.3-1.2) mg/dL AST 47 H (8-39) IU/L ALT 53 H (9-52) IU/L Alkaline Phosphatase 162 H (38-126) IU/L Total Protein 4.0 L (6.1-8.0) g/dL Albumin 1.6 L (3.5-4.8) g/dL Globulin 2.4 L (2.50-4.10) g/dL Albumin/Globulin Ratio 0.60 L (1.3-2.0) mg/g Lipase 15 L (23-300) IU/L TSH 2.81 (0.2700-4.2000) uIU/mL Free T4 1.06 (0.93-1.71) ng/dL Objective : Exam - General General Appearance: No Acute Distress, Cooperative Additional General Exam Details: Vital Signs - Last Taken Temperature 97.6 F 04/02/17 07:30 Pulse Rate 80 04/02/17 11:00 Respiratory Rate 18 04/02/17 07:30 Blood Pressure 130/57 04/02/17 07:30 Pulse Ox 90 04/02/17 07:30 On 2 L per nasal cannula - Respiratory Respiratory Exam: Breathing Non Labored, Decreased Breath Sounds (Especially in basis) - Cardiovascular Cardiovascular Exam: RRR, No Murmur, No Clicks, No Gallops, No Rubs, No JVD - GI/Abdominal GI/Abdominal Exam: Normal Bowel Sounds, Non Tender, Non Distended, Soft - Extremities Extremities Exam: No Edema Present, No Cyanosis Present, Clubbing Present - Neurological Neurological Exam: Alert, Oriented x 3, No Facial Droop, Speech Intact / Clear Additional Neurological Exam Details: Some weakness in the right upper extremity and right lower extremity. - Psychiatric Psychiatric Exam: Depressed Additional Psychiatric Exam Details: More alert today off of opiates. Assessment and Plan - Patient Problems (1) UTI (urinary tract infection) Current Visit: Yes Status: Acute Comment: Due to Escherichia coli Qualifiers: Urinary tract infection type: acute cystitis Hematuria presence: without hematuria Qualified Description: Acute cystitis without hematuria Qualifier Code(s): (N30.00) Acute cystitis without hematuria (2) Weakness Current Visit: Yes Status: Acute (3) Pleural effusion Current Visit: Yes Status: Acute Comment: I suspect related to hyper protein state with malnutrition (4) End stage COPD Current Visit: Yes Status: Acute (5) Severe protein-calorie malnutrition Current Visit: Yes Status: Acute (6) Hypomagnesemia Current Visit: Yes Status: Acute (7) Pulmonary nodule Current Visit: Yes Status: Acute Comment: (Get a repeat CT scan of the chest to look at this, may not be seen with pleural effusion but will check. - Assessment / Plan Additional Assessment/Plan Details: Get MRI scan with the right-sided weakness, as this could certainly be explained by stroke. May need to consider whether or not we get a consultation for potential EGD for esophageal stricture. Continue fluids and de-escalate antibiotics for urinary tract infection to Keflex. I'll treat for a total of 5 days. Please note this urinary tract infection was present on admission. Do not resume opiates for now. PT and OT. Referral for group home facility. Get CT scan of chest to make sure that we are following up on the pulmonary nodule. This may be somewhat compromised with the pleural effusion but we will see. Nutrition evaluation. I'll plan to discuss with her daughter later today if I can as she would prefer to be in the [facility]. Photo / Body Diagrams - Uploaded Photos Uploaded Photos:
[2017-04-02] MEDS: CEPHALEXIN 500 MG CAPSULE PO SCH (11:55)
--- NOTE | 2017-04-02 11:59 | PT.PROG ---
Progress Note Progress Note: 04/02/2017 11:00-11:30 S: pt. reports general weakness being her biggest problem. She states she can no longer perform her normal ADLs and can no longer do things she used to enjoy. She lives at home with her significant other who she states is not helpful because he is on oxygen. She has a multi level house but does not go up or down the stairs. Her bedroom and bathroom are on the main floor. She uses a chair to get around her house. She states she cannot walk but can "hobble" nursing stated they got her up and walking with a walker. She ultimately would like to be discharged to a senior care, but if she does return home she would like to be able to clean her house again. PMH: dependent COPD, 2L nasal cannula, hypoxemic respiratory failure, diabetes, malnutrition, cancer in throat (chemo and radiation), pleural effusion, alcohol abuse, humeral fracture, and smokes daily. O: pt. was able to sit at the side of the bed for about 1 min before feeling too nauseous to continue. She then completed the LEFS and scored an 8. everthing was extremely difficult except for putting on socks/shoes, light activity, heavy activity around the house, and getting into and out of a car, all of which were quite a bit difficult. Sitting for 1hr she has no difficulty with and stated she sits in her chair all day. A: pt. is in a poor state of mind for recovery. It seems as though she believes she will not get better with her goal of going to a senior care. She moves minimally throughout her day and has low support at home to improve. She was consistently asking for more pain meds and became aggrivated when told she was wanted to sit up. Short Term Goals: 1. stand up with a walker 2. walk for 50ft with a walker and support 3, perform 1 sit to stand with minimum assistance Valet Service Attendant Goals 1. stand up without a walker 2. walk 100ft with a walker 3. perform 1 sit to stand without assistance Treatment Plan: Pt. will be seen 2x per day during the week and 1x per day over the weekend Initial treatment: pt. performed some sitting balance bed side, but the session was brief due to her great level of discomfort and nausea. [facility] [place]
--- NOTE | 2017-04-02 13:29 | DI ---
MRI BRAIN SCAN WITHOUT CONTRAST, 04/02/2017 11:35 AM: Clinical History: Right hemiparesis. Previous Exam: 11/15/2013. Sequences: Sagittal T1; Axial TYESHA T2 and FLAIR. Axial diffusion weighted images with ADC mapping were also performed. The 4th, 3rd, and lateral ventricles are of normal size, shape, position, and contour for this patien t's age. There are multiple punctate periventricular white matter hyperintensities bilaterally that e xtend into the watershed territory, consistent with small vessel ischemic disease. This amount of isc hemic disease is appropriate for the patient's age. There is no abnormality present in the left hemis phere to explain the patient's clinical symptoms. There is mild cerebellar and moderate cerebral atro phy. Diffusion weighted imaging with ADC mapping is normal. There are no extracerebral mantels or tyler ft of the midline structures. The paranasal sinuses are normal. Readin. There is no evidence of an acute hemorrhagic or bland infarct. 2. Small vessel ischemic disease. 3. Mild cerebellar and moderate cerebral atrophy.
[2017-04-02] MEDS: NICOTINE 21 MG /DAY PATCH TRANSDERM SCH (15:47)
[2017-04-02] MEDS: ONDANSETRON 4 MG/2 ML VIAL IVP PRN (15:47)
[2017-04-02] MEDS: Patch Removal PATCH TRANSDERM SCH (17:17)
[2017-04-03] MEDS: HEPARIN 5000 UNIT/1 ML SUBCUT SCH ×2 (01:59→10:07)
[2017-04-03] MEDS: CEPHALEXIN 500 MG CAPSULE PO SCH ×3 (02:00→20:00)
[2017-04-03] MEDS: TIOTROPIUM BROMIDE 18 MCG CAPSULE INH SCH (06:27)
[2017-04-03] MEDS: NORMAL SALINE 10 ML SYRINGE FLUSH IVP PRN ×2 (07:25→20:00)
[2017-04-03] MEDS: ONDANSETRON 4 MG/2 ML VIAL IVP PRN ×2 (07:25→20:00)
[2017-04-03] MEDS: VENLAFAXINE XR 37.5 MG CAP PO SCH (09:45)
[2017-04-03] MEDS: ASPIRIN EC 81 MG TABLET PO SCH (09:45)
--- NOTE | 2017-04-03 11:22 | DI ---
CT CHEST SCAN WITHOUT IV CONTRAST, 04/02/2017 11:52 AM : Clinical History: Followup right lower lobe lung nodule. 10/11/2015; 02/21/2016; 08/11/2016. Previous Exam: None at this facility. Scans are performed from the base of the neck to the lower lung bases without IV contrast. Sagittal a nd coronal images using non MIPS and MIPS technique are generated. The base of the neck and thoracic inlet are normal. There are no abnormal axillary, supraclavicular, mediastinal, or hilar nodes. The heart is normal. Coronary artery calcifications are present in the L AD, right coronary artery, and the left circumflex artery. There are small bilateral pleural effusion s with bilateral lower lobe atelectasis and unfortunately this obscures the area of the right lower l obe pulmonary nodule. There is bullous emphysema with chronic interstitial pulmonary fibrosis. The pa tient has developed infiltrates in the posterior and anterior segments of the right upper lobe and th e superior segment of the right lower lobe. These probably represent development of early pneumonia. The adrenal glands and spleen and the visualized portions of the liver and pancreas are normal. There is high density material in the dependent portion of the gallbladder and this may represent gallston es or "milk of calcium" deposits in the gallbladder. There is diffuse anasarca. READIN. The right lower lobe pulmonary nodule cannot be evaluated because of right lower lobe atelectasis and a right pleural effusion obscuring that area. There is also left lower lobe atelectasis and pleu ral effusion. 2. There are coarse infiltrates involving the right upper lobe and right lower lobe probably represe nting pneumonia. 3. 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 Coronary artery disease. 4. Diffuse anasarca.
--- NOTE | 2017-04-03 12:26 | PDOC(PROG) ---
Date and Time of Service: 04/03/2017, 12:20 Interval History: No complaints of chest pain or shortness of breath. states she feels weak. Has lots of cervical pain, chronic, and worse overnight. nausea, things still get stuck. no vomiting. Objective : Data - Labs CBC and BMP: 04/02/17 04:58 04/02/17 04:58 Labs - Last 24 Hours: Laboratory Results 03/31/17 03/31/17 03/31/17 Range/Units 18:19 18:35 19:00 WBC 10.28 (4.8-10.8) 10^3/uL RBC 3.67 L (4.20-5.40) 10^6/uL Hgb 12.0 (12.0-16.0) g/dL Hct 35.6 L (37.0-47.0) % MCV 97.0 (81-99) FL MCH 32.7 H (27-31) PG MCHC 33.7 (33-37) g/dL RDW Std Deviation 57.2 H (39-50) fL RDW Coeff of Eligio 16.8 H (11.5-14.5) % Plt Count 195 (140-350) 10*3/uL MPV 11.4 (7.4-12.2) FL Immature Gran % (Auto) 0.3 (0-5) % Neut % (Auto) 87.8 H (50-80) % Lymph % (Auto) 6.4 L (10-50) % [place] % (Auto) 5.4 (5-15) % Eos % (Auto) 0 (0-8) % Baso % (Auto) 0.1 (0-1) % Immature Gran # (Auto) 0.03 10*3/UL Neut # (Auto) 9.03 10*3/UL Lymph # (Auto) 0.66 10*3/uL [place] # (Auto) 0.55 (0.3-0.8) 10*3/UL Eos # (Auto) 0 10*3/UL Baso # (Auto) 0.01 10*3/UL WBC Morphology Comment Normal morphology (NORM) Plt Morphology Comment Normal morphology (NORM) RBC Morph Comment Normal morphology (NORM) PT 13.6 H (9.7-11.4) secs INR 1.31 (0.00-5.90) N/A VBG pH (7.32-7.42) VBG pCO2 (45-55) mmHg VBG HCO3 (22-26) mmol/L VBG Base Excess (-2-2) MMOL/L Sodium 136 (135-145) meq/L Potassium 4.2 (3.8-5.2) meq/L Chloride 106 (98-112) meq/L Carbon Dioxide 25 (23-33) meq/L Anion Gap 5 (5-20) BUN 7 (7-22) mg/dL Creatinine 0.8 (0.50-1.20) mg/dL Estimated GFR (>60 ml/min/1.73m(2)) BUN/Creatinine Ratio 8.75 (6-20) Glucose 148 H (78-110) mg/dL Calculated Osmolality 282.0 (267-292) mOsm/kg Lactic Acid 2.6 H (0.70-2.10) MMOL/L Calcium 7.3 L (8.7-10.7) mg/dL Magnesium 1.5 L (1.6-2.4) mg/dL Total Bilirubin 0.4 (0.3-1.2) mg/dL AST 48 H (8-39) IU/L ALT 54 H (9-52) IU/L Alkaline Phosphatase 144 H (38-126) IU/L Troponin I < 0.012 (< 0.040) ng/mL C-Reactive Protein 0.5 (0.0-0.9) mg/dL NT-Pro-B Natriuret Pep 975 H (0-450) PG/ML Total Protein 4.3 L (6.1-8.0) g/dL Albumin 1.7 L (3.5-4.8) g/dL Globulin 2.6 (2.50-4.10) g/dL Albumin/Globulin Ratio 0.60 L (1.3-2.0) mg/g Lipase (23-300) IU/L TSH (0.2700-4.2000) uIU/mL Free T4 (0.93-1.71) ng/dL Ur Collection Type Urine Color Urine Clarity (CLEAR) Urine pH (5.0-8.5) Ur Specific [place] (1.005-1.030) Urine Protein (NEG) mg/dl Urine Glucose (UA) (NEG) mg/dL Urine Ketones (NEG) Urine Occult Blood (NEG) Urine Nitrate (NEG) Urine Bilirubin (NEG) Urine Urobilinogen (0.2) EU/dL Ur Leukocyte Esterase (NEG) Urine RBC (NONE) /hpf Urine WBC (NONE) Ur Squamous Epith Cells (NONE) Ur Renal Epithelial Cell (NONE) Urine Crystals Urine Bacteria (NONE) Urine Casts (NONE) Urine Mucus (NONE) Urine Trichomonas (NONE) Urine Yeast (NONE) Ur Culture Indicated? 03/31/17 03/31/17 04/01/17 Range/Units 19:06 20:25 04:25 WBC 7.01 (4.8-10.8) 10^3/uL RBC 3.65 L (4.20-5.40) 10^6/uL Hgb 11.7 L (12.0-16.0) g/dL Hct 34.9 L (37.0-47.0) % MCV 95.6 (81-99) FL MCH 32.1 H (27-31) PG MCHC 33.5 (33-37) g/dL RDW Std Deviation 54.9 H (39-50) fL RDW Coeff of Eligio 16.6 H (11.5-14.5) % Plt Count 175 (140-350) 10*3/uL MPV 12.0 (7.4-12.2) FL Immature Gran % (Auto) 0.4 (0-5) % Neut % (Auto) 79.9 (50-80) % Lymph % (Auto) 11.8 (10-50) % [place] % (Auto) 7.7 (5-15) % Eos % (Auto) 0.1 (0-8) % Baso % (Auto) 0.1 (0-1) % Immature Gran # (Auto) 0.03 10*3/UL Neut # (Auto) 5.59 10*3/UL Lymph # (Auto) 0.83 10*3/uL [place] # (Auto) 0.54 (0.3-0.8) 10*3/UL Eos # (Auto) 0.01 10*3/UL Baso # (Auto) 0.01 10*3/UL WBC Morphology Comment Normal morphology (NORM) Plt Morphology Comment Normal morphology (NORM) RBC Morph Comment Normal morphology (NORM) PT (9.7-11.4) secs INR (0.00-5.90) N/A VBG pH 7.36 (7.32-7.42) VBG pCO2 39 L (45-55) mmHg VBG HCO3 22 (22-26) mmol/L VBG Base Excess -3 L (-2-2) MMOL/L Sodium 136 (135-145) meq/L Potassium 4.0 (3.8-5.2) meq/L Chloride 107 (98-112) meq/L Carbon Dioxide 26 (23-33) meq/L Anion Gap 3 L (5-20) BUN 6 L (7-22) mg/dL Creatinine 0.7 (0.50-1.20) mg/dL Estimated GFR (>60 ml/min/1.73m(2)) BUN/Creatinine Ratio 8.57 (6-20) Glucose 102 (78-110) mg/dL Calculated Osmolality 279.0 (267-292) mOsm/kg Lactic Acid (0.70-2.10) MMOL/L Calcium 7.3 L (8.7-10.7) mg/dL Magnesium (1.6-2.4) mg/dL Total Bilirubin 0.4 (0.3-1.2) mg/dL AST 48 H (8-39) IU/L ALT 52 (9-52) IU/L Alkaline Phosphatase 161 H (38-126) IU/L Troponin I (< 0.040) ng/mL C-Reactive Protein (0.0-0.9) mg/dL NT-Pro-B Natriuret Pep (0-450) PG/ML Total Protein 4.4 L (6.1-8.0) g/dL Albumin 1.8 L (3.5-4.8) g/dL Globulin 2.6 (2.50-4.10) g/dL Albumin/Globulin Ratio 0.60 L (1.3-2.0) mg/g Lipase (23-300) IU/L TSH (0.2700-4.2000) uIU/mL Free T4 (0.93-1.71) ng/dL Ur Collection Type Cath specimen Urine Color Yellow Urine Clarity Slightly cloudy (CLEAR) Urine pH 5.5 (5.0-8.5) Ur Specific [place] <=1.005 (1.005-1.030) Urine Protein Negative (NEG) mg/dl Urine Glucose (UA) Negative (NEG) mg/dL Urine Ketones Negative (NEG) Urine Occult Blood Trace-intact H (NEG) Urine Nitrate Positive H (NEG) Urine Bilirubin Negative (NEG) Urine Urobilinogen 0.2 (0.2) EU/dL Ur Leukocyte Esterase Moderate (NEG) Urine RBC 0-1 (NONE) /hpf Urine WBC 5-10 (NONE) Ur Squamous Epith Cells None (NONE) Ur Renal Epithelial Cell None (NONE) Urine Crystals None Urine Bacteria Many (NONE) Urine Casts None (NONE) Urine Mucus None (NONE) Urine Trichomonas None (NONE) Urine Yeast None (NONE) Ur Culture Indicated? Culture set 04/02/17 Range/Units 04:58 WBC 8.29 (4.8-10.8) 10^3/uL RBC 3.59 L (4.20-5.40) 10^6/uL Hgb 11.7 L (12.0-16.0) g/dL Hct 34.2 L (37.0-47.0) % MCV 95.3 (81-99) FL MCH 32.6 H (27-31) PG MCHC 34.2 (33-37) g/dL RDW Std Deviation 55.6 H (39-50) fL RDW Coeff of Eligio 16.9 H (11.5-14.5) % Plt Count 169 (140-350) 10*3/uL MPV 11.8 (7.4-12.2) FL Immature Gran % (Auto) 0.1 (0-5) % Neut % (Auto) 80.7 H (50-80) % Lymph % (Auto) 10.5 (10-50) % [place] % (Auto) 8.4 (5-15) % Eos % (Auto) 0.2 (0-8) % Baso % (Auto) 0.1 (0-1) % Immature Gran # (Auto) 0.01 10*3/UL Neut # (Auto) 6.68 10*3/UL Lymph # (Auto) 0.87 10*3/uL [place] # (Auto) 0.70 (0.3-0.8) 10*3/UL Eos # (Auto) 0.02 10*3/UL Baso # (Auto) 0.01 10*3/UL WBC Morphology Comment Normal morphology (NORM) Plt Morphology Comment Normal morphology (NORM) RBC Morph Comment Normal morphology (NORM) PT (9.7-11.4) secs INR (0.00-5.90) N/A VBG pH (7.32-7.42) VBG pCO2 (45-55) mmHg VBG HCO3 (22-26) mmol/L VBG Base Excess (-2-2) MMOL/L Sodium 135 (135-145) meq/L Potassium 4.7 (3.8-5.2) meq/L Chloride 108 (98-112) meq/L Carbon Dioxide 25 (23-33) meq/L Anion Gap 2 L (5-20) BUN 6 L (7-22) mg/dL Creatinine 0.7 (0.50-1.20) mg/dL Estimated GFR (>60 ml/min/1.73m(2)) BUN/Creatinine Ratio 8.57 (6-20) Glucose 98 (78-110) mg/dL Calculated Osmolality 277.0 (267-292) mOsm/kg Lactic Acid (0.70-2.10) MMOL/L Calcium 7.3 L (8.7-10.7) mg/dL Magnesium 2.3 (1.6-2.4) mg/dL Total Bilirubin 0.4 (0.3-1.2) mg/dL AST 47 H (8-39) IU/L ALT 53 H (9-52) IU/L Alkaline Phosphatase 162 H (38-126) IU/L Troponin I (< 0.040) ng/mL C-Reactive Protein (0.0-0.9) mg/dL NT-Pro-B Natriuret Pep (0-450) PG/ML Total Protein 4.0 L (6.1-8.0) g/dL Albumin 1.6 L (3.5-4.8) g/dL Globulin 2.4 L (2.50-4.10) g/dL Albumin/Globulin Ratio 0.60 L (1.3-2.0) mg/g Lipase 15 L (23-300) IU/L TSH 2.81 (0.2700-4.2000) uIU/mL Free T4 1.06 (0.93-1.71) ng/dL Ur Collection Type Urine Color Urine Clarity (CLEAR) Urine pH (5.0-8.5) Ur Specific [place] (1.005-1.030) Urine Protein (NEG) mg/dl Urine Glucose (UA) (NEG) mg/dL Urine Ketones (NEG) Urine Occult Blood (NEG) Urine Nitrate (NEG) Urine Bilirubin (NEG) Urine Urobilinogen (0.2) EU/dL Ur Leukocyte Esterase (NEG) Urine RBC (NONE) /hpf Urine WBC (NONE) Ur Squamous Epith Cells (NONE) Ur Renal Epithelial Cell (NONE) Urine Crystals Urine Bacteria (NONE) Urine Casts (NONE) Urine Mucus (NONE) Urine Trichomonas (NONE) Urine Yeast (NONE) Ur Culture Indicated? Objective : Exam - General General Appearance: No Acute Distress, Cooperative Additional General Exam Details: Vital Signs - Last Taken Temperature 98.5 F 04/03/17 09:00 Pulse Rate 83 04/03/17 09:00 Respiratory Rate 16 04/03/17 09:00 Blood Pressure 145/62 04/03/17 09:00 Pulse Ox 92 04/03/17 09:00 - Eye Eye Exam: No Scleral Icterus - Respiratory Respiratory Exam: Breathing Non Labored, Decreased Breath Sounds - Cardiovascular Cardiovascular Exam: RRR, No Murmur, No Clicks, No Gallops, No Rubs, JVD - GI/Abdominal GI/Abdominal Exam: Normal Bowel Sounds, Non Tender, Non Distended, Soft - Extremities Extremities Exam: No Edema Present, No Cyanosis Present, Clubbing Present - Neurological Neurological Exam: Alert, Oriented x 3, No Facial Droop, Speech Intact / Clear Assessment and Plan - Patient Problems (1) UTI (urinary tract infection) Current Visit: Yes Status: Acute Qualifiers: Urinary tract infection type: acute cystitis Hematuria presence: without hematuria Qualified Description: Acute cystitis without hematuria Qualifier Code(s): (N30.00) Acute cystitis without hematuria (2) Dysphagia Current Visit: Yes Status: Acute Comment: Suspect related to stricture Qualifiers: Dysphagia type: other dysphagia Qualified Description: Other dysphagia Qualifier Code(s): (R13.19) Other dysphagia (3) Weakness Current Visit: Yes Status: Acute (4) Pleural effusion Current Visit: Yes Status: Acute (5) End stage COPD Current Visit: Yes Status: Acute (6) Severe protein-calorie malnutrition Current Visit: Yes Status: Acute (7) Hypomagnesemia Current Visit: Yes Status: Acute (8) Pulmonary nodule Current Visit: Yes Status: Acute - Assessment / Plan Additional Assessment/Plan Details: I consulted surgery, we will proceed with EGD and stretching if there is a stricture hopefully tomorrow. Stop prophylactic heparin and keep nothing by mouth at midnight. Continue PT and OT. Continue Keflex for urinary tract infection, present on admission, for next 2 days. This could very well also be colonization, but difficult to say. The patient is profoundly weak on examination, I do think she needs group home facility for continued rehabilitation and physical therapy and occupational therapy. We'll try to talk to the patient's daughter about this today as she prefers [facility]. Resume Percocet, but 3 times a day dosing and lower dose. MRI scan negative for stroke, but I think her right arm weakness is probably from prior neck issues. I spoke with the patient's daughter today and she said she likes the plan to go to [facility]. Photo / Body Diagrams - Uploaded Photos Uploaded Photos:
[2017-04-03] MEDS: oxyCODONE-ACETAMINOPHEN 5-325 TAB PO PRN ×2 (12:40→20:12)
--- NOTE | 2017-04-03 13:26 | CONSULT ---
Consult Note - Consult Consult Date: 04/03/17 Reason for Consult: PreOp Consulation : General Surgery Requesting Physician: Dr. Ramiro Rubio Primary Care Provider: NONE NONE - History of Present Illness History of Present Illness: This is a 76-year-old female who's been admitted because of pyelonephritis and generalized weakness. She is having food stick while she eats. She's also been having progressive weight loss despite what she says is eating. 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 Patient is unsure where the cancer exactly was. She's had multiple neck procedures versus left her with some weakness in the neck and some generalized distortion. Patient has never had a EGD before. CT scan of the chest and abdomen shows possible pyelonephritis. She does have cholelithiasis. She has a lot of atelectasis and pleural effusion. Review of Systems - Constitutional Constitutional: REPORTS: General Health Poor, Weight Loss - Integumentary Integumentary: REPORTS: Negative System Review - Mouth/Throat Mouth/Throat Exam: REPORTS: Negative System Review - Respiratory Respiratory: REPORTS: Negative System Review - Cardiovascular Cardiovascular: REPORTS: Negative System Review - Gastrointestinal Gastrointestinal / Abdominal: REPORTS: Negative System Review Past Medical History Medical History: 1. Dependent COPD, 2 L per nasal cannula, chronic hypoxemic respiratory failure. 2. Diabetes is, diet-controlled. 3. protein Calorie Malnutrition. 4. History of oral cancer with previous radiation and chemotherapy. 5. History of pleural effusion that was drained back in past. 6. Hx of cavitary lesion on chest CT in past. 7. History of alcohol abuse in the past, denies alcohol use today. 8. History of Humoral fracture status post open reduction and internal fixation back in June 2014. Surgical History: 1. neck surgery in 2013. 2. . 3. carpal tunnel release. 4. cataract surgery. 5. thoracentesis of lung in 2013 Family History: Reviewed an Not Pertinent Pertinent Family History: significant for coronary artery disease Past Social History: smokes, quit drinking a year ago. has healthy children, and a daughter in [place], [place]. Lives with a significant other, . Tobacco Use: Current Every Day Smoker Substance Use Type: None Alcohol Use: Other (history of alcohol use/abuse, quit in 2013) Medication / Allergies Home Medications: Home Medications Medication Instructions Recorded Confirmed Type Multivitamin Tab [Thera Tab] 1 tab PO DAILY #30 tablet 01/10/15 03/31/17 Rx Aspirin [Aspir 81] 1 tab PO DAILY tab 12/18/15 03/31/17 History Lactose-Reduced Food [Ensure Plus] 8 oz PO 4-5X day #237 ml 12/18/15 03/31/17 Clinic Vit A,C & E/Lutein/Minerals 1 each PO BID tab 12/18/15 03/31/17 History [Ocuvite With Lutein Tablet] Lisinopril 1 tab PO DAILY #30 tab 08/26/16 03/31/17 Clinic Pantoprazole Sodium 1 tab ORAL QD #30 tab 11/17/16 03/31/17 Clinic Oxycodone HCl/Acetaminophen 1 tab PO Q6H PRN #120 tab 01/05/17 03/31/17 Clinic [Oxycodone-Acetaminophen 10-325] Tiotropium [place] [Spiriva] 1 puff INH DAILY #1 inh 02/11/17 03/31/17 Clinic Simvastatin 40 mg PO DAILY #30 tab 03/05/17 03/31/17 Clinic Allergies/Adverse Reactions: Allergies Allergy/AdvReac Type Severity Reaction Status Date / Time codeine [Codeine] Allergy Severe Anaphylaxis Verified 04/02/17 06:23 sulfamethoxazole Allergy NAUSEA Verified 04/02/17 06:23 [From Bactrim] trimethoprim [From Bactrim] Allergy NAUSEA Verified 04/02/17 06:23 Exam - Vitals Vital Signs: Vital Signs Temperature 98.5 F Temperature Source Temporal Artery Scan Pulse Rate [Apical] 85 Pulse Rate [Pulse Oximeter] 83 Pulse Rate 75 Respiratory Rate 16 Blood Pressure [Right Arm] 145/62 Pulse Ox 92 Oxygen Flow Rate 1L Oxygen Delivery Method Room Air Height 5 ft 4 in Weight 46.221 kg Results - Labs CBC and BMP: 04/02/17 04:58 04/02/17 04:58 Assessment and Plan - Patient Problems (1) Dysphagia Current Visit: Yes Status: Acute Qualifiers: Dysphagia type: other dysphagia Qualified Description: Other dysphagia Qualifier Code(s): (R13.19) Other dysphagia - Assessment / Plan Additional Assessment/Plan Details: Would recommend the patient have an EGD. The risk and potential complications of the procedure were discussed with the patient.. They understood this. Also discussed alternatives diagnostic and treatment options. Will get the EGD set up at the first available date.
--- NOTE | 2017-04-03 14:51 | PT.PROG ---
Progress Note Progress Note: 04/03/2017 2:00-2:30 S: pt. reports feeling ok because she just received her pain meds and said apologized for any rudeness towards us earlier O: pt. was able to move from supine to sit where she sat edge of bed and valanced for 10 min. Pt. complained of pain at the base of her head. She also performed ROM with her arms and her legs. She was asked to stand but refused and requested to lay down. she then returned to supine with minimal assist and was given heat for 15 min on her neck. A: pt. was in a better mood today then yesterday and was much more cooperative. She performed the activities asked of her until she was asked to stand. Her neck pain is likely due to a multitude of factors including Hx of neck surgery, radiation to the neck, and extreme FHP and upper thoracic kyphosis P: get pt. up to standing, assess standing tolerance and balance, and get pt. walking as much as she can tolerate with a walker.
[2017-04-03] MEDS: Patch Removal PATCH TRANSDERM SCH (16:15)
[2017-04-03] MEDS: NICOTINE 21 MG /DAY PATCH TRANSDERM SCH (16:37)
--- NOTE | 2017-04-03 20:13 | DI ---
HISTORY: Right upper extremity swelling. TECHNIQUE: 24 images. Sonographic images of the right upper extremity were obtained and submitted f or interpretation. FINDINGS: The visualized veins are compressible, with normal color flow. Edema is noted within the medial cubital fossa extending to the medial forearm. There is normal phasicity with respiration. IMPRESSION: 1. No evidence of deep venous thrombosis.
[2017-04-04] MEDS: TIOTROPIUM BROMIDE 18 MCG CAPSULE INH SCH (06:44)
[2017-04-04 06:48] LABS: BASOPHILS # (AUTO) 0 10*3/UL; BASOPHILS % (AUTO) 0 % (0-1); EOSINOPHILS # (AUTO) 0.02 10*3/UL; EOSINOPHILS % (AUTO) 0.3 % (0-8); HEMATOCRIT 35.3 % (37.0-47.0); HEMOGLOBIN 12.2 g/dL (12.0-16.0); LYMPHOCYTES # (AUTO) 0.76 10*3/uL; MEAN CORPUSCULAR HEMOGLOBIN 32.4 PG (27-31); MEAN CORPUSCULAR HGB CONC 34.6 g/dL (33-37); MEAN CORPUSCULAR VOLUME 93.9 FL (81-99); MEAN PLATELET VOLUME 11.7 FL (7.4-12.2); MONOCYTES # (AUTO) 0.64 10*3/UL (0.3-0.8); MONOCYTES % (AUTO) 8.1 % (5-15); NEUTROPHILS % (AUTO) 81.7 % (50-80); RED BLOOD COUNT 3.76 10^6/uL (4.20-5.40)
[2017-04-04 06:51] LABS: PLATELET MORPHOLOGY COMMENT NORMAL MORPHOLOGY (NORM); RBC MORPHOLOGY COMMENT NORMAL MORPHOLOGY (NORM); WBC MORPHOLOGY COMMENT NORMAL MORPHOLOGY (NORM)
[2017-04-04 07:07] LABS: BLOOD UREA NITROGEN 5 mg/dL (7-22); BUN/CREATININE RATIO 8.33 (6-20); CALCIUM 7.2 mg/dL (8.7-10.7)
[2017-04-04] MEDS ORDERED: Lactated Ringers 1,000 ML PRIMARY IV ONE (07:36)
[2017-04-04] MEDS ORDERED: LIDOCAINE HCL/PF 2% (20 MG/ML) - 5 ML SYRINGE ONE (07:59)
--- NOTE | 2017-04-04 08:19 | GEN.OPNOTE ---
EGD Operative Note Surgery Date: 04/04/17 Preoperative Diagnosis: Dysphagia Postoperative Diagnosis: Esophagitis, gastritis, duodenitis Procedure: Esophagogastroduodenoscopy with biopsies Surgeon: Bimal Haji MD Anesthesia Provider: Maday Carbajal CRNA Anesthesia Type: MAC Indications: 76-year-old female who's had persistent nausea vomiting and difficulty swallowing Findings: Esophagus: Limbs video EGD scope inserted posterior pharynx guided into the esophagus under direct visualization. She has small patches of esophagitis. No esophageal strictures seen GE Junction : GE junction approximately 3840 cm from incisors. Patient did have a hiatal hernia no stricture seen Fundus : Scope retroflexed on itself revealing a hiatal hernia but no other pathology Body : Body of the stomach was thickened mucosa biopsies taken Prepyloric : Prepyloric area had hemorrhagic gastritis. Biopsy taken also biopsy taken for CLOtest Small Intestine : First portion of the small bowel had what appeared be inflammatory polyps these were biopsied. There is acute inflammatory changes. No gillian ulcerations seen A lubricated flexible upper endoscope was inserted and passed through the esophagus and stomach into the duodenum.
[2017-04-04] MEDS: oxyCODONE-ACETAMINOPHEN 5-325 TAB PO PRN ×2 (09:15→17:36)
[2017-04-04] MEDS: CEPHALEXIN 500 MG CAPSULE PO SCH ×2 (09:16→20:50)
[2017-04-04] MEDS: VENLAFAXINE XR 37.5 MG CAP PO SCH (09:16)
[2017-04-04] MEDS: ASPIRIN EC 81 MG TABLET PO SCH (09:16)
--- NOTE | 2017-04-04 10:28 | OT.PROG ---
Progress Note Progress Note: S: pt stated that she did not have a good night last night as she could not sleep well. She stated that she did want to try and get up for therapy. O: pt was in supine position when entered her room. She needed Mod A to go from supine to EOB as she is extremely weak. Once she sat on bed she complete x1 transfer approx 8 ft and then the 2nd another 8 ft. Pt Sat on EOB for up to 2 min before attempting bed mobility by herself before needing Mod A to complete once again. pt was left in supine position with call light within reach. A: pt is weak and needs assistance with all transitions. She may continue to benefit from therapy to increase activity tolerance and maintain ability to transfer. P: continue per plan of care.
[2017-04-04] MEDS ORDERED: PANTOPRAZOLE 40 MG TABLET PO ONE (11:33)
--- NOTE | 2017-04-04 14:18 | PDOC(PROG) ---
Date and Time of Service: 04/04/2017, 1415 Interval History: No complaints of chest pain or shortness breath. Still complains of a dry mouth. She does not have any salivary glands after a head and neck cancer and is not on any artificial saliva. This may be one of the issues she has with swallowing. EGD revealed hemorrhagic gastritis and esophagitis. She complains of diarrhea, but thus far C. difficile study has not been done yet. Objective : Data - Labs CBC and BMP: 04/04/17 06:46 04/04/17 06:46 Labs - Last 24 Hours: Laboratory Results 04/02/17 04/04/17 Range/Units 04:58 06:46 WBC 7.94 (4.8-10.8) 10^3/uL RBC 3.76 L (4.20-5.40) 10^6/uL Hgb 12.2 (12.0-16.0) g/dL Hct 35.3 L (37.0-47.0) % MCV 93.9 (81-99) FL MCH 32.4 H (27-31) PG MCHC 34.6 (33-37) g/dL RDW Std Deviation 55.8 H (39-50) fL RDW Coeff of Eligio 17.2 H (11.5-14.5) % Plt Count 168 (140-350) 10*3/uL MPV 11.7 (7.4-12.2) FL Immature Gran % (Auto) 0.3 (0-5) % Neut % (Auto) 81.7 H (50-80) % Lymph % (Auto) 9.6 L (10-50) % [place] % (Auto) 8.1 (5-15) % Eos % (Auto) 0.3 (0-8) % Baso % (Auto) 0 (0-1) % Immature Gran # (Auto) 0.02 10*3/UL Neut # (Auto) 6.50 10*3/UL Lymph # (Auto) 0.76 10*3/uL [place] # (Auto) 0.64 (0.3-0.8) 10*3/UL Eos # (Auto) 0.02 10*3/UL Baso # (Auto) 0 10*3/UL WBC Morphology Comment Normal morphology (NORM) Plt Morphology Comment Normal morphology (NORM) RBC Morph Comment Normal morphology (NORM) Sodium 132 L (135-145) meq/L Potassium 4.8 (3.8-5.2) meq/L Chloride 109 (98-112) meq/L Carbon Dioxide 21 L (23-33) meq/L Anion Gap 2 L (5-20) BUN 5 L (7-22) mg/dL Creatinine 0.6 (0.50-1.20) mg/dL Estimated GFR Billing Administrator BUN/Creatinine Ratio 8.33 (6-20) Glucose 90 (78-110) mg/dL Calculated Osmolality 270.0 (267-292) mOsm/kg Calcium 7.2 L (8.7-10.7) mg/dL Prealbumin 7 L (19 - 38) mg/dL Vitamin B12 > 1000 H (239-931) pg/mL Serum Folate 17.9 (2.76-20.0) NG/ML Objective : Exam - General General Appearance: No Acute Distress, Cooperative Additional General Exam Details: Vital Signs - Last Taken Temperature 97.4 F 04/04/17 13:00 Pulse Rate 80 04/04/17 13:00 Respiratory Rate 22 04/04/17 13:00 Blood Pressure 133/70 04/04/17 13:00 Pulse Ox 92 04/04/17 13:00 Currently on 2 L per nasal cannula - Eye Eye Exam: No Scleral Icterus - Respiratory Respiratory Exam: Breathing Non Labored, Decreased Breath Sounds - Cardiovascular Cardiovascular Exam: RRR, No Murmur, No Clicks, No Gallops, No Rubs, No JVD - GI/Abdominal GI/Abdominal Exam: Normal Bowel Sounds, Non Tender, Non Distended, Soft - Extremities Extremities Exam: No Clubbing Present, No Edema Present, No Cyanosis Present - Neurological Neurological Exam: Alert, Oriented x 3, No Facial Droop, Speech Intact / Clear, Moves All Extremities Equally Additional Neurological Exam Details: globally weak Assessment and Plan - Patient Problems (1) UTI (urinary tract infection) Current Visit: Yes Status: Acute Qualifiers: Urinary tract infection type: acute cystitis Hematuria presence: without hematuria Qualified Description: Acute cystitis without hematuria Qualifier Code(s): (N30.00) Acute cystitis without hematuria (2) Dysphagia Current Visit: Yes Status: Acute Qualifiers: Dysphagia type: other dysphagia Qualified Description: Other dysphagia Qualifier Code(s): (R13.19) Other dysphagia (3) Weakness Current Visit: Yes Status: Acute (4) Pleural effusion Current Visit: Yes Status: Acute (5) End stage COPD Current Visit: Yes Status: Acute (6) Severe protein-calorie malnutrition Current Visit: Yes Status: Acute (7) Hypomagnesemia Current Visit: Yes Status: Acute (8) Pulmonary nodule Current Visit: Yes Status: Acute - Assessment / Plan Additional Assessment/Plan Details: We'll finish Keflex for UTI tomorrow. Continue with twice a day proton pump inhibitor. PT and OT. I did get the ultrasound back on the right arm and there is no evidence of DVT. Check cervical x-ray make sure that the hardware is at least in decent placement. I think overall that the right arm weakness is related to that prior myopathy. For the lack of saliva from the prior head and neck cancer, I think that we should put her on some artificial saliva and I ordered some medicines for that. Hopefully halfway this next week.
--- NOTE | 2017-04-04 15:02 | DI ---
HISTORY: Neck pain and weakness FINDINGS: There are posterior instruments by way of pedicular screws and plates from C4-C6. There is anterolisthesis of C3 on C4 (grade 1). There is mild thickening of the prevertebral soft ti ssues. The normal cervical alignment is slightly reversed. There is advanced degenerative change. IMPRESSION: 1. Post-surgical changes without acute fractures identified. Consider MRI if clinical symptoms pers ist.
[2017-04-04] MEDS: NICOTINE 21 MG /DAY PATCH TRANSDERM SCH (16:15)
[2017-04-04] MEDS: Patch Removal PATCH TRANSDERM SCH (16:15)
[2017-04-04] MEDS: PANTOPRAZOLE 40 MG TABLET PO SCH (16:26)
[2017-04-04] MEDS ORDERED: [UNRECOGNIZED DRUG - OTHER] PO SCH (17:00)
[2017-04-05] MEDS ORDERED: PANTOPRAZOLE 40 MG TABLET PO SCH (07:00)
[2017-04-05] MEDS: TIOTROPIUM BROMIDE 18 MCG CAPSULE INH SCH (07:00)
[2017-04-05] MEDS: PANTOPRAZOLE 40 MG TABLET PO SCH ×2 (09:02→15:26)
[2017-04-05] MEDS: ASPIRIN EC 81 MG TABLET PO SCH (10:10)
[2017-04-05] MEDS: VENLAFAXINE XR 37.5 MG CAP PO SCH (10:10)
[2017-04-05] MEDS: oxyCODONE-ACETAMINOPHEN 5-325 TAB PO PRN (10:10)
[2017-04-05] MEDS: CEPHALEXIN 500 MG CAPSULE PO SCH ×2 (10:10→20:20)
[2017-04-05] MEDS ORDERED: Loperamide Tab 2 MG TABLET PO PRN (12:58)
[2017-04-05] MEDS: NICOTINE 21 MG /DAY PATCH TRANSDERM SCH (15:25)
[2017-04-05] MEDS: Patch Removal PATCH TRANSDERM SCH (15:26)
--- NOTE | 2017-04-05 17:17 | PDOC(PROG) ---
Date and Time of Service: 03/28/2017, 1744 Interval History: Patient seen and examined earlier. No complaints of chest pain or shortness breath. Feels like she is doing better. No diarrhea complaints today. Still very weak. Objective : Data - Labs CBC and BMP: 04/04/17 06:46 04/04/17 06:46 Labs - Last 24 Hours: Laboratory Results 04/04/17 Range/Units 08:08 H. pylori Urease Test Negative (NEGATIVE) Objective : Exam - General General Appearance: No Acute Distress, Cooperative Additional General Exam Details: Vital Signs - Last Taken Temperature 98.2 F 04/05/17 16:35 Pulse Rate 88 04/05/17 16:35 Respiratory Rate 20 04/05/17 16:35 Blood Pressure 128/64 04/05/17 16:35 Pulse Ox 93 04/05/17 16:35 She is on 2 L per nasal cannula. Weight is pending. - Eye Eye Exam: No Scleral Icterus - ENT ENT Exam: Mucous Membranes Dry - Respiratory Respiratory Exam: Breathing Non Labored, Decreased Breath Sounds - Cardiovascular Cardiovascular Exam: RRR, No Murmur, No Clicks, No Gallops, No Rubs, No JVD - GI/Abdominal GI/Abdominal Exam: Normal Bowel Sounds, Non Tender, Non Distended, Soft - Extremities Extremities Exam: No Clubbing Present, No Cyanosis Present, +2 Edema (This is worse in her right upper extremity than anywhere else. I think she probably had some lymph nodes affected they're in the setting of her head and neck cancer in the past.) - Neurological Neurological Exam: Alert, No Facial Droop, Speech Intact / Clear Additional Neurological Exam Details: Right arm is definitely weaker. Assessment and Plan - Patient Problems (1) Gastritis Current Visit: Yes Status: Acute Qualifiers: Gastritis type: superficial Chronicity: chronic Gastritis bleeding : with bleeding Qualified Description: Chronic superficial gastritis with bleeding Qualifier Code(s): (K29.31) Chronic superficial gastritis with bleeding (2) UTI (urinary tract infection) Current Visit: Yes Status: Acute Comment: Today his last day of Keflex, 5 days of therapy. UTI was present on admission. Qualifiers: Urinary tract infection type: acute cystitis Hematuria presence: without hematuria Qualified Description: Acute cystitis without hematuria Qualifier Code(s): (N30.00) Acute cystitis without hematuria (3) Weakness Current Visit: Yes Status: Acute (4) Pleural effusion Current Visit: Yes Status: Acute (5) End stage COPD Current Visit: Yes Status: Acute (6) Severe protein-calorie malnutrition Current Visit: Yes Status: Acute (7) Hypomagnesemia Current Visit: Yes Status: Acute (8) Pulmonary nodule Current Visit: Yes Status: Acute (9) Dysphagia Current Visit: Yes Status: Resolved Qualifiers: Dysphagia type: other dysphagia Qualified Description: Other dysphagia Qualifier Code(s): (R13.19) Other dysphagia - Assessment / Plan Additional Assessment/Plan Details: By EGD, the patient had hemorrhagic gastritis and duodenitis. On proton pump inhibitor. No complaints today. 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 We placed her on artificial saliva and that seems to have helped. Patient remains weak and deconditioned, with severe protein calorie malnutrition and low body mass index below 18 kg/m. Keflex will finish tonight. Discontinue catheter. Continue PT and OT. correction facility placement. Hopefully later this week.
[2017-04-05] MEDS: metroNIDAZOLE Tab 500 MG TAB PO SCH (22:00)
[2017-04-06] MEDS: oxyCODONE-ACETAMINOPHEN 5-325 TAB PO PRN ×3 (00:33→23:00)
[2017-04-06] MEDS: ACETAMINOPHEN 325 MG TABLET PO PRN (04:01)
[2017-04-06] MEDS: PANTOPRAZOLE 40 MG TABLET PO SCH ×2 (06:58→15:41)
[2017-04-06] MEDS: TIOTROPIUM BROMIDE 18 MCG CAPSULE INH SCH (06:58)
[2017-04-06] MEDS: VENLAFAXINE XR 37.5 MG CAP PO SCH (10:02)
[2017-04-06] MEDS: ASPIRIN EC 81 MG TABLET PO SCH (10:02)
[2017-04-06] MEDS: metroNIDAZOLE Tab 500 MG TAB PO SCH ×3 (10:02→20:35)
--- NOTE | 2017-04-06 11:12 | OT.PROG ---
Progress Note Progress Note: S: pt stated earlier in day that she did not want to get up out of bed and participate in therapy. she complained of being really tired. O: we returned later in the a.m. and wrapped her R arm as it demonstrated weeping and swelling. Pt's arm was wrapped to decrease swelling, with kerlix/ coban and telfa. A: pt is extremely weak and displays low activity tolerance when she does participate. continue to monitor R arm. P: continue per plan of care.
--- NOTE | 2017-04-06 13:06 | PDOC(PROG) ---
Date and Time of Service: 04/06/2017, 1308 Interval History: No complete chest pain, or shortness of breath. Still weak, has some edema more so on her right side than her left. Her ultrasound of her right upper extremity was negative for clot. PT is going to do a Unna wrap around the arm. She complains mostly of diarrhea and her C. difficile status is positive. I started Flagyl yesterday and will add vancomycin as this apparently is her second bout of C. difficile after antibiotics. Objective : Data - Labs CBC and BMP: 04/04/17 06:46 04/04/17 06:46 Labs - Last 24 Hours: Laboratory Results 03/31/17 03/31/17 03/31/17 Range/Units 18:19 18:35 19:00 WBC 10.28 (4.8-10.8) 10^3/uL RBC 3.67 L (4.20-5.40) 10^6/uL Hgb 12.0 (12.0-16.0) g/dL Hct 35.6 L (37.0-47.0) % MCV 97.0 (81-99) FL MCH 32.7 H (27-31) PG MCHC 33.7 (33-37) g/dL RDW Std Deviation 57.2 H (39-50) fL RDW Coeff of Eligio 16.8 H (11.5-14.5) % Plt Count 195 (140-350) 10*3/uL MPV 11.4 (7.4-12.2) FL Immature Gran % (Auto) 0.3 (0-5) % Neut % (Auto) 87.8 H (50-80) % Lymph % (Auto) 6.4 L (10-50) % [place] % (Auto) 5.4 (5-15) % Eos % (Auto) 0 (0-8) % Baso % (Auto) 0.1 (0-1) % Immature Gran # (Auto) 0.03 10*3/UL Neut # (Auto) 9.03 10*3/UL Lymph # (Auto) 0.66 10*3/uL [place] # (Auto) 0.55 (0.3-0.8) 10*3/UL Eos # (Auto) 0 10*3/UL Baso # (Auto) 0.01 10*3/UL WBC Morphology Comment Normal morphology (NORM) Plt Morphology Comment Normal morphology (NORM) RBC Morph Comment Normal morphology (NORM) PT 13.6 H (9.7-11.4) secs INR 1.31 (0.00-5.90) N/A VBG pH (7.32-7.42) VBG pCO2 (45-55) mmHg VBG HCO3 (22-26) mmol/L VBG Base Excess (-2-2) MMOL/L Sodium 136 (135-145) meq/L Potassium 4.2 (3.8-5.2) meq/L Chloride 106 (98-112) meq/L Carbon Dioxide 25 (23-33) meq/L Anion Gap 5 (5-20) BUN 7 (7-22) mg/dL Creatinine 0.8 (0.50-1.20) mg/dL Estimated GFR (>60 ml/min/1.73m(2)) BUN/Creatinine Ratio 8.75 (6-20) Glucose 148 H (78-110) mg/dL Calculated Osmolality 282.0 (267-292) mOsm/kg Lactic Acid 2.6 H (0.70-2.10) MMOL/L Calcium 7.3 L (8.7-10.7) mg/dL Magnesium 1.5 L (1.6-2.4) mg/dL Total Bilirubin 0.4 (0.3-1.2) mg/dL AST 48 H (8-39) IU/L ALT 54 H (9-52) IU/L Alkaline Phosphatase 144 H (38-126) IU/L Troponin I < 0.012 (< 0.040) ng/mL C-Reactive Protein 0.5 (0.0-0.9) mg/dL NT-Pro-B Natriuret Pep 975 H (0-450) PG/ML Total Protein 4.3 L (6.1-8.0) g/dL Albumin 1.7 L (3.5-4.8) g/dL Globulin 2.6 (2.50-4.10) g/dL Albumin/Globulin Ratio 0.60 L (1.3-2.0) mg/g Prealbumin (19 - 38) mg/dL Lipase (23-300) IU/L Vitamin B12 (239-931) pg/mL Serum Folate (2.76-20.0) NG/ML TSH (0.2700-4.2000) uIU/mL Free T4 (0.93-1.71) ng/dL Ur Collection Type Urine Color Urine Clarity (CLEAR) Urine pH (5.0-8.5) Ur Specific [place] (1.005-1.030) Urine Protein (NEG) mg/dl Urine Glucose (UA) (NEG) mg/dL Urine Ketones (NEG) Urine Occult Blood (NEG) Urine Nitrate (NEG) Urine Bilirubin (NEG) Urine Urobilinogen (0.2) EU/dL Ur Leukocyte Esterase (NEG) Urine RBC (NONE) /hpf Urine WBC (NONE) Ur Squamous Epith Cells (NONE) Ur Renal Epithelial Cell (NONE) Urine Crystals Urine Bacteria (NONE) Urine Casts (NONE) Urine Mucus (NONE) Urine Trichomonas (NONE) Urine Yeast (NONE) Ur Culture Indicated? H. pylori Urease Test (NEGATIVE) 03/31/17 03/31/17 04/01/17 Range/Units 19:06 20:25 04:25 WBC 7.01 (4.8-10.8) 10^3/uL RBC 3.65 L (4.20-5.40) 10^6/uL Hgb 11.7 L (12.0-16.0) g/dL Hct 34.9 L (37.0-47.0) % MCV 95.6 (81-99) FL MCH 32.1 H (27-31) PG MCHC 33.5 (33-37) g/dL RDW Std Deviation 54.9 H (39-50) fL RDW Coeff of Eligio 16.6 H (11.5-14.5) % Plt Count 175 (140-350) 10*3/uL MPV 12.0 (7.4-12.2) FL Immature Gran % (Auto) 0.4 (0-5) % Neut % (Auto) 79.9 (50-80) % Lymph % (Auto) 11.8 (10-50) % [place] % (Auto) 7.7 (5-15) % Eos % (Auto) 0.1 (0-8) % Baso % (Auto) 0.1 (0-1) % Immature Gran # (Auto) 0.03 10*3/UL Neut # (Auto) 5.59 10*3/UL Lymph # (Auto) 0.83 10*3/uL [place] # (Auto) 0.54 (0.3-0.8) 10*3/UL Eos # (Auto) 0.01 10*3/UL Baso # (Auto) 0.01 10*3/UL WBC Morphology Comment Normal morphology (NORM) Plt Morphology Comment Normal morphology (NORM) RBC Morph Comment Normal morphology (NORM) PT (9.7-11.4) secs INR (0.00-5.90) N/A VBG pH 7.36 (7.32-7.42) VBG pCO2 39 L (45-55) mmHg VBG HCO3 22 (22-26) mmol/L VBG Base Excess -3 L (-2-2) MMOL/L Sodium 136 (135-145) meq/L Potassium 4.0 (3.8-5.2) meq/L Chloride 107 (98-112) meq/L Carbon Dioxide 26 (23-33) meq/L Anion Gap 3 L (5-20) BUN 6 L (7-22) mg/dL Creatinine 0.7 (0.50-1.20) mg/dL Estimated GFR (>60 ml/min/1.73m(2)) BUN/Creatinine Ratio 8.57 (6-20) Glucose 102 (78-110) mg/dL Calculated Osmolality 279.0 (267-292) mOsm/kg Lactic Acid (0.70-2.10) MMOL/L Calcium 7.3 L (8.7-10.7) mg/dL Magnesium (1.6-2.4) mg/dL Total Bilirubin 0.4 (0.3-1.2) mg/dL AST 48 H (8-39) IU/L ALT 52 (9-52) IU/L Alkaline Phosphatase 161 H (38-126) IU/L Troponin I (< 0.040) ng/mL C-Reactive Protein (0.0-0.9) mg/dL NT-Pro-B Natriuret Pep (0-450) PG/ML Total Protein 4.4 L (6.1-8.0) g/dL Albumin 1.8 L (3.5-4.8) g/dL Globulin 2.6 (2.50-4.10) g/dL Albumin/Globulin Ratio 0.60 L (1.3-2.0) mg/g Prealbumin (19 - 38) mg/dL Lipase (23-300) IU/L Vitamin B12 (239-931) pg/mL Serum Folate (2.76-20.0) NG/ML TSH (0.2700-4.2000) uIU/mL Free T4 (0.93-1.71) ng/dL Ur Collection Type Cath specimen Urine Color Yellow Urine Clarity Slightly cloudy (CLEAR) Urine pH 5.5 (5.0-8.5) Ur Specific [place] <=1.005 (1.005-1.030) Urine Protein Negative (NEG) mg/dl Urine Glucose (UA) Negative (NEG) mg/dL Urine Ketones Negative (NEG) Urine Occult Blood Trace-intact H (NEG) Urine Nitrate Positive H (NEG) Urine Bilirubin Negative (NEG) Urine Urobilinogen 0.2 (0.2) EU/dL Ur Leukocyte Esterase Moderate (NEG) Urine RBC 0-1 (NONE) /hpf Urine WBC 5-10 (NONE) Ur Squamous Epith Cells None (NONE) Ur Renal Epithelial Cell None (NONE) Urine Crystals None Urine Bacteria Many (NONE) Urine Casts None (NONE) Urine Mucus None (NONE) Urine Trichomonas None (NONE) Urine Yeast None (NONE) Ur Culture Indicated? Culture set H. pylori Urease Test (NEGATIVE) 04/02/17 04/04/17 04/04/17 Range/Units 04:58 06:46 08:08 WBC 8.29 7.94 (4.8-10.8) 10^3/uL RBC 3.59 L 3.76 L (4.20-5.40) 10^6/uL Hgb 11.7 L 12.2 (12.0-16.0) g/dL Hct 34.2 L 35.3 L (37.0-47.0) % MCV 95.3 93.9 (81-99) FL MCH 32.6 H 32.4 H (27-31) PG MCHC 34.2 34.6 (33-37) g/dL RDW Std Deviation 55.6 H 55.8 H (39-50) fL RDW Coeff of Eligio 16.9 H 17.2 H (11.5-14.5) % Plt Count 169 168 (140-350) 10*3/uL MPV 11.8 11.7 (7.4-12.2) FL Immature Gran % (Auto) 0.1 0.3 (0-5) % Neut % (Auto) 80.7 H 81.7 H (50-80) % Lymph % (Auto) 10.5 9.6 L (10-50) % [place] % (Auto) 8.4 8.1 (5-15) % Eos % (Auto) 0.2 0.3 (0-8) % Baso % (Auto) 0.1 0 (0-1) % Immature Gran # (Auto) 0.01 0.02 10*3/UL Neut # (Auto) 6.68 6.50 10*3/UL Lymph # (Auto) 0.87 0.76 10*3/uL [place] # (Auto) 0.70 0.64 (0.3-0.8) 10*3/UL Eos # (Auto) 0.02 0.02 10*3/UL Baso # (Auto) 0.01 0 10*3/UL WBC Morphology Comment Normal morphology Normal morphology (NORM) Plt Morphology Comment Normal morphology Normal morphology (NORM) RBC Morph Comment Normal morphology Normal morphology (NORM) PT (9.7-11.4) secs INR (0.00-5.90) N/A VBG pH (7.32-7.42) VBG pCO2 (45-55) mmHg VBG HCO3 (22-26) mmol/L VBG Base Excess (-2-2) MMOL/L Sodium 135 132 L (135-145) meq/L Potassium 4.7 4.8 (3.8-5.2) meq/L Chloride 108 109 (98-112) meq/L Carbon Dioxide 25 21 L (23-33) meq/L Anion Gap 2 L 2 L (5-20) BUN 6 L 5 L (7-22) mg/dL Creatinine 0.7 0.6 (0.50-1.20) mg/dL Estimated GFR Travel Registered Nurse Oncology (>60 ml/min/1.73m(2)) BUN/Creatinine Ratio 8.57 8.33 (6-20) Glucose 98 90 (78-110) mg/dL Calculated Osmolality 277.0 270.0 (267-292) mOsm/kg Lactic Acid (0.70-2.10) MMOL/L Calcium 7.3 L 7.2 L (8.7-10.7) mg/dL Magnesium 2.3 (1.6-2.4) mg/dL Total Bilirubin 0.4 (0.3-1.2) mg/dL AST 47 H (8-39) IU/L ALT 53 H (9-52) IU/L Alkaline Phosphatase 162 H (38-126) IU/L Troponin I (< 0.040) ng/mL C-Reactive Protein (0.0-0.9) mg/dL NT-Pro-B Natriuret Pep (0-450) PG/ML Total Protein 4.0 L (6.1-8.0) g/dL Albumin 1.6 L (3.5-4.8) g/dL Globulin 2.4 L (2.50-4.10) g/dL Albumin/Globulin Ratio 0.60 L (1.3-2.0) mg/g Prealbumin 7 L (19 - 38) mg/dL Lipase 15 L (23-300) IU/L Vitamin B12 > 1000 H (239-931) pg/mL Serum Folate 17.9 (2.76-20.0) NG/ML TSH 2.81 (0.2700-4.2000) uIU/mL Free T4 1.06 (0.93-1.71) ng/dL Ur Collection Type Urine Color Urine Clarity (CLEAR) Urine pH (5.0-8.5) Ur Specific [place] (1.005-1.030) Urine Protein (NEG) mg/dl Urine Glucose (UA) (NEG) mg/dL Urine Ketones (NEG) Urine Occult Blood (NEG) Urine Nitrate (NEG) Urine Bilirubin (NEG) Urine Urobilinogen (0.2) EU/dL Ur Leukocyte Esterase (NEG) Urine RBC (NONE) /hpf Urine WBC (NONE) Ur Squamous Epith Cells (NONE) Ur Renal Epithelial Cell (NONE) Urine Crystals Urine Bacteria (NONE) Urine Casts (NONE) Urine Mucus (NONE) Urine Trichomonas (NONE) Urine Yeast (NONE) Ur Culture Indicated? H. pylori Urease Test Negative (NEGATIVE) Objective : Exam - General General Appearance: No Acute Distress, Cooperative Additional General Exam Details: Vital Signs - Last Taken Temperature 98.1 F 04/06/17 11:11 Pulse Rate 87 04/06/17 11:11 Respiratory Rate 18 04/06/17 11:11 Blood Pressure 114/57 04/06/17 11:11 Pulse Ox 93 04/06/17 11:11 On 2 L per nasal cannula - Eye Eye Exam: No Scleral Icterus - ENT ENT Exam: Mucous Membranes Moist - Respiratory Respiratory Exam: Breathing Non Labored, Decreased Breath Sounds - Cardiovascular Cardiovascular Exam: RRR, No Murmur, No Clicks, No Gallops, No Rubs, No JVD - GI/Abdominal GI/Abdominal Exam: Normal Bowel Sounds, Non Tender, Non Distended, Soft - Extremities Extremities Exam: No Cyanosis Present, Clubbing Present, +3 Edema (Particularly in the right arm. She has some pedal edema on the right as well.) - Neurological Neurological Exam: Alert, Oriented x 3, No Facial Droop, Speech Intact / Clear Additional Neurological Exam Details: Much weaker on the right side versus the left. This is upper arm strength weakness. I think it is cervical in nature. (Myelopathy) - Psychiatric Psychiatric Exam: Normal Affect, Normal Mood Additional Psychiatric Exam Details: Mood is significantly improved this week on Effexor. Assessment and Plan - Patient Problems (1) C. difficile colitis Current Visit: Yes Status: Acute Comment: Probably as a result of antibiotics for urinary tract infection. Note that urinary tract infection was present on admission. (2) Gastritis Current Visit: Yes Status: Acute Qualifiers: Gastritis type: superficial Chronicity: chronic Gastritis bleeding : with bleeding Qualified Description: Chronic superficial gastritis with bleeding Qualifier Code(s): (K29.31) Chronic superficial gastritis with bleeding (3) UTI (urinary tract infection) Current Visit: Yes Status: Acute Qualifiers: Urinary tract infection type: acute cystitis Hematuria presence: without hematuria Qualified Description: Acute cystitis without hematuria Qualifier Code(s): (N30.00) Acute cystitis without hematuria (4) Weakness Current Visit: Yes Status: Acute (5) Pleural effusion Current Visit: Yes Status: Acute (6) End stage COPD Current Visit: Yes Status: Acute (7) Severe protein-calorie malnutrition Current Visit: Yes Status: Acute (8) Hypomagnesemia Current Visit: Yes Status: Resolved (9) Pulmonary nodule Current Visit: Yes Status: Acute Comment: At this point, the CT scan could not see the pulmonary nodule with fluid. The patient is absolutely not a candidate for systemic chemotherapy or radiation therapy due to significant and poor nutrition status. - Assessment / Plan Additional Assessment/Plan Details: Continue with therapy for C. difficile colitis, and add vancomycin. A minimum of 2 weeks of antibiotics for C. difficile colitis and then we can consider continuing vancomycin for another 2 weeks and taper slowly. correction facility placement pending. [facility]. Check electrolytes tomorrow. Continue with nutrition consult/PT/OT I think edema will mobilize, although I think lymph nodes were probably irradiated on the right and the patient should not have any further venipuncture or blood pressure on the right. Oxygen as necessary. Continue Effexor for depression. I spoke with the patient's daughter, Lyndon, and gave her an update on the patient's condition today. [phone]
[2017-04-06] MEDS: Vancomycin Oral Soln 125 MG/5 ML (7500MG/300ML) BOTTLE PO SCH ×2 (13:45→19:14)
[2017-04-06] MEDS: NICOTINE 21 MG /DAY PATCH TRANSDERM SCH (15:40)
[2017-04-06] MEDS: Patch Removal PATCH TRANSDERM SCH (15:41)
[2017-04-07] MEDS: Vancomycin Oral Soln 125 MG/5 ML (7500MG/300ML) BOTTLE PO SCH ×4 (01:10→19:48)
[2017-04-07] MEDS: oxyCODONE-ACETAMINOPHEN 5-325 TAB PO PRN ×2 (07:31→17:22)
[2017-04-07] MEDS: PANTOPRAZOLE 40 MG TABLET PO SCH ×2 (07:31→15:16)
[2017-04-07] MEDS: TIOTROPIUM BROMIDE 18 MCG CAPSULE INH SCH (07:57)
[2017-04-07] MEDS: metroNIDAZOLE Tab 500 MG TAB PO SCH (09:35)
[2017-04-07] MEDS: VENLAFAXINE XR 37.5 MG CAP PO SCH (09:35)
[2017-04-07] MEDS: ASPIRIN EC 81 MG TABLET PO SCH (09:35)
--- NOTE | 2017-04-07 10:00 | PDOC(PROG) ---
Date and Time of Service: 04/07/2017 10 AM Interval History: Subjective Patient is denying symptoms, she think she is making improvement. She's not sure about her diarrhea, denying abdominal pain. Had some neck pain and she takes pain medication for it. She had some swelling in her right arm they applied a Michael wrap for it and its weeping less now. She wants to go to a long term. Objective : Data - Labs CBC and BMP: 04/07/17 10:18 04/07/17 10:18 Objective : Exam - General General Appearance: No Acute Distress, Cooperative, Thin - Head Head Exam: Normal Inspection - Eye Eye Exam: Normal Appearance - ENT ENT Exam: Normal Exam - Neck Neck Exam: Normal Inspection - Respiratory Respiratory Exam: Clear to Auscultation - Bilaterally - Cardiovascular Cardiovascular Exam: RRR - GI/Abdominal GI/Abdominal Exam: Normal Bowel Sounds, Non Tender, Non Distended, Soft - Rectal Rectal Exam: Deferred - External Exam: Deferred - Extremities Additional Extremities Exam Details: Michael wrap applied to the right arm - Back Back Exam: Normal Inspection - Neurological Neurological Exam: Alert, Oriented x 3, CN II-XII Intact - Psychiatric Psychiatric Exam: Normal Affect - Integumentary Integumentary Exam: Dry, Pallor Assessment and Plan - Patient Problems (1) C. difficile colitis Current Visit: Yes Status: Acute Comment: Continue vancomycin but I think we'll stop the Flagyl. (2) Gastritis Current Visit: Yes Status: Acute Comment: She is on Protonix continue Qualifiers: Gastritis type: superficial Chronicity: chronic Gastritis bleeding : with bleeding Qualified Description: Chronic superficial gastritis with bleeding Qualifier Code(s): (K29.31) Chronic superficial gastritis with bleeding (3) Weakness Current Visit: Yes Status: Acute Comment: Continue PT and OT. Will talk to the estate planner about arrangement for a long term placement. (4) UTI (urinary tract infection) Current Visit: Yes Status: Acute Comment: This is resolved she had the treatment for an Escherichia coli infection. Qualifiers: Urinary tract infection type: acute cystitis Hematuria presence: without hematuria Qualified Description: Acute cystitis without hematuria Qualifier Code(s): (N30.00) Acute cystitis without hematuria (5) Severe protein-calorie malnutrition Current Visit: Yes Status: Acute Comment: Spoke to the dietitian about maybe increasing her ensurer.
[2017-04-07 10:21] LABS: BASOPHILS # (AUTO) 0.01 10*3/UL; BASOPHILS % (AUTO) 0.2 % (0-1); EOSINOPHILS # (AUTO) 0.04 10*3/UL; EOSINOPHILS % (AUTO) 0.6 % (0-8); HEMATOCRIT 31.2 % (37.0-47.0); HEMOGLOBIN 10.8 g/dL (12.0-16.0); LYMPHOCYTES # (AUTO) 0.54 10*3/uL; MEAN CORPUSCULAR HEMOGLOBIN 32.9 PG (27-31); MEAN CORPUSCULAR HGB CONC 34.6 g/dL (33-37); MEAN CORPUSCULAR VOLUME 95.1 FL (81-99); MEAN PLATELET VOLUME 11.4 FL (7.4-12.2); MONOCYTES # (AUTO) 0.63 10*3/UL (0.3-0.8); MONOCYTES % (AUTO) 9.5 % (5-15); NEUTROPHILS # (AUTO) 5.39 10*3/UL; NEUTROPHILS % (AUTO) 81.1 % (50-80); RED BLOOD COUNT 3.28 10^6/uL (4.20-5.40)
--- NOTE | 2017-04-07 10:28 | OTI REPORT ---
Thank you for the referral of Aydee Rodriguez. She was seen on 04/03/17 for an occupational therapy inpatient evaluation secondary to weakness. SUBJECTIVE: The patient is a 76-year-old female who is being seen secondary to weakness. The patient reports that she was living in [place]. Prior to that she had gone to hospice in [place], but got better and came back home to her home in [place]. The patient reports that her home is way too big for her to take care of by herself. The patient is having a lot of neck pain and having difficulty swallowing. She is having difficulty moving around and dressing herself secondary to the pain. The patient wants to possibly return to the facility she was at in [place] or the [facility] as she says it is too difficult for her to be on her own and do the housework. Prior to admission the patient was doing some of the cooking and cleaning. She does not drive. She states that her neck pain is her biggest complaint. PAST MEDICAL HISTORY: Past medical history can be found in the patient's medical record. OBJECTIVE FINDINGS: Bed mobility: The patient was able to come from supine to sit with max assist. General observations: While sitting edge of bed, the patient's cervical spine is very kyphotic. She is at an approximately 50-70 degree flexed position most of the time. The patient is very frail and thin. Range of motion: She has minimal rotations of the neck to approximately 30 degrees to the left and the right. The patient has good left upper extremity range of motion. The patient's right upper extremity demonstrates 0 to 40 degrees. Elbow flexion/extension is within normal limits. Wrist and hand range of motion are within normal limits. Strength: Strength in the left upper extremity was 3/5. She does not have strength against gravity of the shoulder. Strength in the right upper extremity is 2-/5. Strength for elbow flexion/extension is 3+/5 and strength for wrist flexion/extension is 3+/5. Swallow: The patient states she normally coughs on things like Boost. The therapist did a quick assessment of her swallow with a Boost while sitting edge of bed. The patient did not show signs of external aspiration and had good laryngeal elevation. However, because of the patient's very kyphotic position, if she is laying in bed she is definitely more prone to cough. The patient states she is getting a scope of her throat tomorrow. Activities of daily living: The patient requires max assist for dressing lower extremities and mod assist for dressing upper extremities. She requires set up for all simple ADLs. Transfers: The patient refused to stand up from the bed today. ASSESSMENT: The patient is pretty involved at this point in time. Problem List: Increased weakness Decreased upper extremity range of motion Decreased upper extremity strength Decreased ability to perform activities of daily living Decreased ability to perform functional transfers Short-Term Goals: To be met by discharge from inpatient: Patient will be able to dress lower and upper extremities with min assist. Patient will improve upper extremity strength to 4/5 bilaterally. Patient will be able to complete a toilet transfer with min assist including toilet hygiene. Patient will be able to stand x10 minutes to complete simple ADLs to increase activity tolerance. Long-Term Goals: To be met following discharge from inpatient: Patient's goal is to get to the [facility] or another nursing type facility secondary to her decreased ability to care for herself. TREATMENT PLAN: Patient will be seen B.I.D during the week and one time per day over the weekend as an inpatient to address the above goals and objectives. INITIAL TREATMENT: Treatment today consisted of the initial evaluation followed by the patient coming from supine to sit with max assist and sitting edge of bed x8 minutes while completing upper extremity range of motion exercises. The patient did not stand. She did verbalize her wishes for a retirement plan. SHANI
[2017-04-07 10:37] LABS: PLATELET MORPHOLOGY COMMENT NORMAL MORPHOLOGY (NORM); RBC MORPHOLOGY COMMENT NORMAL MORPHOLOGY (NORM); WBC MORPHOLOGY COMMENT SEE COMMENTS (NORM)
--- NOTE | 2017-04-07 10:58 | OT AM DAY ---
Diagnosis : Weakness AM - Occupational Therapy S: The patient states she had a better night last night. She did talk about her kids. O: The patient was seen in her room. She was in a supine position. She completed bed mobility with min to mod assist. She completed two transfers x6 feet. She then completed bed mobility once back in bed with min to mod assist once again. Once in supine, bed mobility was completed for the patient due to her weakness. A: The patient would continue to benefit from therapy to increase her overall activity tolerance as she is very weak. P: Continue seeing patient BID during the week and one time per day over the weekend for upper extremity strengthening, ADLs, and overall functional mobility. SHANI
--- NOTE | 2017-04-07 11:33 | OT.PROG ---
Progress Note Progress Note: S: pt stated that she wanted to sleep and that she was very tired today. She stated that her neck had increased pain. O: Pt completed ADLs sitting in bed with mod assist and initial set up on bed side tray. Pt had increased difficulties with bilateral reaching secondary to edema in UE. She was able to was her face using her left arm. While using her arm pts arm began seeping fluid around IV. A: pt is extremely weak and displays low activity tolerance. continue to monitor both arms. P: continue per plan of care.
[2017-04-07] MEDS: NICOTINE 21 MG /DAY PATCH TRANSDERM SCH (15:16)
[2017-04-07] MEDS: Patch Removal PATCH TRANSDERM SCH (15:17)
[2017-04-08] MEDS: Vancomycin Oral Soln 125 MG/5 ML (7500MG/300ML) BOTTLE PO SCH ×4 (01:07→20:04)
[2017-04-08] MEDS: oxyCODONE-ACETAMINOPHEN 5-325 TAB PO PRN ×3 (01:08→20:06)
[2017-04-08] MEDS: TIOTROPIUM BROMIDE 18 MCG CAPSULE INH SCH (06:37)
[2017-04-08] MEDS: PANTOPRAZOLE 40 MG TABLET PO SCH ×2 (06:46→16:10)
--- NOTE | 2017-04-08 08:36 | PDOC(PROG) ---
Date and Time of Service: 04/08/2017 8:34 AM Interval History: Subjective Patient continue to have the diarrhea, no vomiting though no abdominal pain. She said she is feeling better though. Objective : Data - Labs CBC and BMP: 04/07/17 10:18 04/07/17 10:18 Labs - Last 24 Hours: Laboratory Results 04/07/17 Range/Units 10:18 WBC 6.64 (4.8-10.8) 10^3/uL RBC 3.28 L (4.20-5.40) 10^6/uL Hgb 10.8 L (12.0-16.0) g/dL Hct 31.2 L (37.0-47.0) % MCV 95.1 (81-99) FL MCH 32.9 H (27-31) PG MCHC 34.6 (33-37) g/dL RDW Std Deviation 54.6 H (39-50) fL RDW Coeff of Eligio 16.7 H (11.5-14.5) % Plt Count 178 (140-350) 10*3/uL MPV 11.4 (7.4-12.2) FL Immature Gran % (Auto) 0.5 (0-5) % Neut % (Auto) 81.1 H (50-80) % Lymph % (Auto) 8.1 L (10-50) % [place] % (Auto) 9.5 (5-15) % Eos % (Auto) 0.6 (0-8) % Baso % (Auto) 0.2 (0-1) % Immature Gran # (Auto) 0.03 10*3/UL Neut # (Auto) 5.39 10*3/UL Lymph # (Auto) 0.54 10*3/uL [place] # (Auto) 0.63 (0.3-0.8) 10*3/UL Eos # (Auto) 0.04 10*3/UL Baso # (Auto) 0.01 10*3/UL WBC Morphology Comment See comments (NORM) Plt Morphology Comment Normal morphology (NORM) RBC Morph Comment Normal morphology (NORM) Sodium 130 L (135-145) meq/L Potassium 3.9 (3.8-5.2) meq/L Chloride 103 (98-112) meq/L Carbon Dioxide 25 (23-33) meq/L Anion Gap 2 L (5-20) BUN 6 L (7-22) mg/dL Creatinine 0.5 (0.50-1.20) mg/dL Estimated GFR (>60 ml/min/1.73m(2)) BUN/Creatinine Ratio 12.00 (6-20) Glucose 101 (78-110) mg/dL Calculated Osmolality 267.0 (267-292) mOsm/kg Calcium 7.0 L (8.7-10.7) mg/dL Objective : Exam - General General Appearance: No Acute Distress, Cooperative - Head Head Exam: Normal Inspection - Eye Eye Exam: Normal Appearance - ENT ENT Exam: Normal Exam - Neck Neck Exam: Normal Inspection - Respiratory Respiratory Exam: Clear to Auscultation - Bilaterally - Cardiovascular Cardiovascular Exam: RRR - GI/Abdominal GI/Abdominal Exam: Normal Bowel Sounds, Non Tender, Non Distended, Soft - Rectal Rectal Exam: Deferred - External Exam: Deferred - Extremities Additional Extremities Exam Details: Edema in her right forearm seem to be less than yesterday. - Back Back Exam: Normal Inspection - Neurological Neurological Exam: Alert, CN II-XII Intact, Moves All Extremities Equally - Psychiatric Psychiatric Exam: Normal Affect Assessment and Plan - Patient Problems (1) C. difficile colitis Current Visit: Yes Status: Acute Comment: Continue vancomycin. I'll speak with the turnaround planner to see where do we inventory control analyst terms of correction placement. (2) Gastritis Current Visit: Yes Status: Acute Comment: Continue Protonix Qualifiers: Gastritis type: superficial Chronicity: chronic Gastritis bleeding : with bleeding Qualified Description: Chronic superficial gastritis with bleeding Qualifier Code(s): (K29.31) Chronic superficial gastritis with bleeding (3) Weakness Current Visit: Yes Status: Acute Comment: Continue PT and OT (4) UTI (urinary tract infection) Current Visit: Yes Status: Acute Comment: This is resolved Qualifiers: Urinary tract infection type: acute cystitis Hematuria presence: without hematuria Qualified Description: Acute cystitis without hematuria Qualifier Code(s): (N30.00) Acute cystitis without hematuria (5) Severe protein-calorie malnutrition Current Visit: Yes Status: Acute Comment: Continue supplements
[2017-04-08] MEDS: Calcium/Vit D 600mg/400u Tab 1 TAB TABLET PO SCH (09:17)
[2017-04-08] MEDS: VENLAFAXINE XR 37.5 MG CAP PO SCH (09:17)
[2017-04-08] MEDS: Multivitamin Tab 1 TAB PO SCH (09:17)
[2017-04-08] MEDS: ASPIRIN EC 81 MG TABLET PO SCH (09:17)
--- NOTE | 2017-04-08 09:28 | PT.PROG ---
Progress Note Progress Note: S. Patient stated that she would be willing to do exercises at the edge of bed. O. Patient performed bed mobility and long arc quads, marches, heel toe raises all x 10 bilaterally. Patient was left with OT for further therapy. A. Patient tolerated exercises fair, she requires max assist x 1 for bed mobility Patient is very weak and would continue to benefit from skilled therapy. P. Continue POC.
[2017-04-08] MEDS: NICOTINE 21 MG /DAY PATCH TRANSDERM SCH (16:09)
[2017-04-08] MEDS: Patch Removal PATCH TRANSDERM SCH (16:10)
--- NOTE | 2017-04-08 16:21 | PT.PROG ---
Progress Note Progress Note: S. Patient states she needs to go to the restroom, and she does not want to do any exercises. O. Patient performed supine to stand transfer and stand pivot transfer to the commode. Patient stood x 2 minutes then transferred back to the bed to supine. Patient was left in bed with alarm and call light. A. Patient is very weak. She required max assist with bed mobility and mod assist with transfers, she would continue to benefit from skilled therapy to gain strength and mobility. P. Continue POC.
--- NOTE | 2017-04-08 16:31 | OT.PROG ---
Progress Note Progress Note: s: pt reports she is doing a little better and would like to get up at this time. O: pt was seen in her room in supine position in the a.m. She completed bed mobility with min-Mod A. While sitting on EOB she completed marching with BLE's and some LAQ's. She stood for up to 2-3 min before fatigue set in and she declined to walk. Bed mobility back into bed today was completed with MOd A. Pt's arm and leg were wrapped today. A: pt is extremely weak and declines to walk as of late. May continue to benefit from therapy to increase overall function. She may benefit from N.h. care. P: continue per plan of care.
[2017-04-09] MEDS: Vancomycin Oral Soln 125 MG/5 ML (7500MG/300ML) BOTTLE PO SCH ×3 (00:36→13:17)
[2017-04-09] MEDS: TIOTROPIUM BROMIDE 18 MCG CAPSULE INH SCH (06:42)
[2017-04-09] MEDS: PANTOPRAZOLE 40 MG TABLET PO SCH (06:54)
[2017-04-09] MEDS: oxyCODONE-ACETAMINOPHEN 5-325 TAB PO PRN (07:20)
[2017-04-09] MEDS: Calcium/Vit D 600mg/400u Tab 1 TAB TABLET PO SCH (08:25)
[2017-04-09] MEDS: VENLAFAXINE XR 37.5 MG CAP PO SCH (08:25)
[2017-04-09] MEDS: ASPIRIN EC 81 MG TABLET PO SCH (08:25)
[2017-04-09] MEDS: Multivitamin Tab 1 TAB PO SCH (08:25)
--- NOTE | 2017-04-09 11:52 | DI ---
VENOUS DOPPLER ULTRASOUND OF THE RIGHT LOWER EXTREMITY, 04/09/2017 10:03 AM: Clinical History: Right leg swelling. Previous Exam: None. Technique: 2D real-time imaging is supplemented with color Doppler ultrasound. Compression and augmen tation maneuvers were performed. The deep venous system from the groin to the popliteal fossa is norm al. The greater saphenous vein is normal. There is edema in the lower extremity in the subcutaneous f at from the level of the popliteal fossa to the ankle. Reading: Negative venous Doppler ultrasound of the right lower extremity for deep vein thrombosis.
--- NOTE | 2017-04-09 12:57 | DCSUMMARY ---
Hospitalization Summary Admit Date: 04/01/17 Discharge Date: 04/09/17 Hospital Course: Discharge diagnoses 1. Urinary tract infection 2. C. difficile 3. COPD 4. Severe protein calorie malnutrition 5. History of oral cancer with previous radiation and chemotherapy 6. Pleural effusion likely secondary to hypoalbuminemia 7. History of cavitary lesion in the past on chest CT 8. History of alcohol abuse in the past 9. History of humeral fracture status post open reduction and internal fixation back in June 2014 10. Cholelithiasis without evidence of cholecystitis 11. Mild cerebellar and moderate cerebral atrophy 12. Esophagitis, duodenitis and gastritis. Hospital course This is a 76 years old female with medical history significant for history of head and neck cancer, advanced COPD, malnutrition and tobacco abuse. Who came into the hospital because she was not feeling well for a week she had some nausea, intermittent vomiting and diarrhea. She's not feeling very well and she is only able to take her ensure. She is deconditioned and her endurance is significantly limited. Her labs showed that her albumin was below 2. A CT of the abdomen showed possible renal infarct versus infection however the ultrasound was negative. There was bilateral pleural effusion. Her UA was abnormal and grew Escherichia coli so she was treated for urinary tract infection. Testing for C. difficile came back positive and she was started on vancomycin. For her malnutrition her intake was supplemented with ensure. We started PT and OT. She did have an echocardiogram which showed ejection fraction of 60%, moderately enlarged right ventricle but could not estimate the pulmonary pressure. An MRI of the brain done showed mild cerebellar and moderate cerebral atrophy with small vessel ischemic disease no evidence of acute hemorrhagic or bland infarcts. CT of the chest to follow-up on a right lung nodule was done however the nodule could not be evaluated because of atelectasis and the right pleural effusion obscuring the area. There is also a left lower lobe atelectasis and a pleural effusion. There was some coarse infiltrate involving the right upper and right lower unclear reason we thought that she did not have pneumonia. She had diffuse anasarca. CT of the abdomen showed diffuse enhancement suggestive of diffuse mucosal thickening secondary acute gastritis. There was a perfusion defect in the lower posterior aspect of the left kidney with perinephric stranding could be an infarct versus pyelonephritis. However the ultrasound did not show that. Coronary artery disease manifested by calcification. She did have an EGD because of the finding on the CT and that showed duodenitis and gastritis and esophagitis. The patient initially was treated with antibiotics as I said for the Escherichia coli infection then she developed C. difficile and she was treated for that with vancomycin. We asked PT and OT to see her. She didn't do much though with them because of her deconditioning. Eventually decided that she needs a prison placement she's been in [place] before however they did not have bed so she was evaluated by [facility] and was accepted and patient will be transferred there. I saw her later on during her hospital stay we continued with the same plan with treatment with antibiotics for the C. difficile. We added more ensure to her diet to see whether that would help with her malnutrition. Patient did have some swelling in her right arm and this is secondary to the hypoalbuminemia, ultrasound was negative for DVT. On the day of discharge she had also swelling in the right leg and ultrasound was negative for DVT so we felt that she could be discharged to prison. Laboratory Results 03/31/17 03/31/17 03/31/17 Range/Units 18:19 18:35 19:00 WBC 10.28 (4.8-10.8) 10^3/uL RBC 3.67 L (4.20-5.40) 10^6/uL Hgb 12.0 (12.0-16.0) g/dL Hct 35.6 L (37.0-47.0) % MCV 97.0 (81-99) FL MCH 32.7 H (27-31) PG MCHC 33.7 (33-37) g/dL RDW Std Deviation 57.2 H (39-50) fL RDW Coeff of Eligio 16.8 H (11.5-14.5) % Plt Count 195 (140-350) 10*3/uL MPV 11.4 (7.4-12.2) FL Immature Gran % (Auto) 0.3 (0-5) % Neut % (Auto) 87.8 H (50-80) % Lymph % (Auto) 6.4 L (10-50) % [place] % (Auto) 5.4 (5-15) % Eos % (Auto) 0 (0-8) % Baso % (Auto) 0.1 (0-1) % Immature Gran # (Auto) 0.03 10*3/UL Neut # (Auto) 9.03 10*3/UL Lymph # (Auto) 0.66 10*3/uL [place] # (Auto) 0.55 (0.3-0.8) 10*3/UL Eos # (Auto) 0 10*3/UL Baso # (Auto) 0.01 10*3/UL WBC Morphology Comment Normal morphology (NORM) Plt Morphology Comment Normal morphology (NORM) RBC Morph Comment Normal morphology (NORM) PT 13.6 H (9.7-11.4) secs INR 1.31 (0.00-5.90) N/A VBG pH (7.32-7.42) VBG pCO2 (45-55) mmHg VBG HCO3 (22-26) mmol/L VBG Base Excess (-2-2) MMOL/L Sodium 136 (135-145) meq/L Potassium 4.2 (3.8-5.2) meq/L Chloride 106 (98-112) meq/L Carbon Dioxide 25 (23-33) meq/L Anion Gap 5 (5-20) BUN 7 (7-22) mg/dL Creatinine 0.8 (0.50-1.20) mg/dL Estimated GFR (>60 ml/min/1.73m(2)) BUN/Creatinine Ratio 8.75 (6-20) Glucose 148 H (78-110) mg/dL Calculated Osmolality 282.0 (267-292) mOsm/kg Lactic Acid 2.6 H (0.70-2.10) MMOL/L Calcium 7.3 L (8.7-10.7) mg/dL Magnesium 1.5 L (1.6-2.4) mg/dL Total Bilirubin 0.4 (0.3-1.2) mg/dL AST 48 H (8-39) IU/L ALT 54 H (9-52) IU/L Alkaline Phosphatase 144 H (38-126) IU/L Troponin I < 0.012 (< 0.040) ng/mL C-Reactive Protein 0.5 (0.0-0.9) mg/dL NT-Pro-B Natriuret Pep 975 H (0-450) PG/ML Total Protein 4.3 L (6.1-8.0) g/dL Albumin 1.7 L (3.5-4.8) g/dL Globulin 2.6 (2.50-4.10) g/dL Albumin/Globulin Ratio 0.60 L (1.3-2.0) mg/g Prealbumin (19 - 38) mg/dL Lipase (23-300) IU/L Vitamin B12 (239-931) pg/mL Serum Folate (2.76-20.0) NG/ML TSH (0.2700-4.2000) uIU/mL Free T4 (0.93-1.71) ng/dL Ur Collection Type Urine Color Urine Clarity (CLEAR) Urine pH (5.0-8.5) Ur Specific [place] (1.005-1.030) Urine Protein (NEG) mg/dl Urine Glucose (UA) (NEG) mg/dL Urine Ketones (NEG) Urine Occult Blood (NEG) Urine Nitrate (NEG) Urine Bilirubin (NEG) Urine Urobilinogen (0.2) EU/dL Ur Leukocyte Esterase (NEG) Urine RBC (NONE) /hpf Urine WBC (NONE) Ur Squamous Epith Cells (NONE) Ur Renal Epithelial Cell (NONE) Urine Crystals Urine Bacteria (NONE) Urine Casts (NONE) Urine Mucus (NONE) Urine Trichomonas (NONE) Urine Yeast (NONE) Ur Culture Indicated? H. pylori Urease Test (NEGATIVE) 03/31/17 03/31/17 04/01/17 Range/Units 19:06 20:25 04:25 WBC 7.01 (4.8-10.8) 10^3/uL RBC 3.65 L (4.20-5.40) 10^6/uL Hgb 11.7 L (12.0-16.0) g/dL Hct 34.9 L (37.0-47.0) % MCV 95.6 (81-99) FL MCH 32.1 H (27-31) PG MCHC 33.5 (33-37) g/dL RDW Std Deviation 54.9 H (39-50) fL RDW Coeff of Eligio 16.6 H (11.5-14.5) % Plt Count 175 (140-350) 10*3/uL MPV 12.0 (7.4-12.2) FL Immature Gran % (Auto) 0.4 (0-5) % Neut % (Auto) 79.9 (50-80) % Lymph % (Auto) 11.8 (10-50) % [place] % (Auto) 7.7 (5-15) % Eos % (Auto) 0.1 (0-8) % Baso % (Auto) 0.1 (0-1) % Immature Gran # (Auto) 0.03 10*3/UL Neut # (Auto) 5.59 10*3/UL Lymph # (Auto) 0.83 10*3/uL [place] # (Auto) 0.54 (0.3-0.8) 10*3/UL Eos # (Auto) 0.01 10*3/UL Baso # (Auto) 0.01 10*3/UL WBC Morphology Comment Normal morphology (NORM) Plt Morphology Comment Normal morphology (NORM) RBC Morph Comment Normal morphology (NORM) PT (9.7-11.4) secs INR (0.00-5.90) N/A VBG pH 7.36 (7.32-7.42) VBG pCO2 39 L (45-55) mmHg VBG HCO3 22 (22-26) mmol/L VBG Base Excess -3 L (-2-2) MMOL/L Sodium 136 (135-145) meq/L Potassium 4.0 (3.8-5.2) meq/L Chloride 107 (98-112) meq/L Carbon Dioxide 26 (23-33) meq/L Anion Gap 3 L (5-20) BUN 6 L (7-22) mg/dL Creatinine 0.7 (0.50-1.20) mg/dL Estimated GFR (>60 ml/min/1.73m(2)) BUN/Creatinine Ratio 8.57 (6-20) Glucose 102 (78-110) mg/dL Calculated Osmolality 279.0 (267-292) mOsm/kg Lactic Acid (0.70-2.10) MMOL/L Calcium 7.3 L (8.7-10.7) mg/dL Magnesium (1.6-2.4) mg/dL Total Bilirubin 0.4 (0.3-1.2) mg/dL AST 48 H (8-39) IU/L ALT 52 (9-52) IU/L Alkaline Phosphatase 161 H (38-126) IU/L Troponin I (< 0.040) ng/mL C-Reactive Protein (0.0-0.9) mg/dL NT-Pro-B Natriuret Pep (0-450) PG/ML Total Protein 4.4 L (6.1-8.0) g/dL Albumin 1.8 L (3.5-4.8) g/dL Globulin 2.6 (2.50-4.10) g/dL Albumin/Globulin Ratio 0.60 L (1.3-2.0) mg/g Prealbumin (19 - 38) mg/dL Lipase (23-300) IU/L Vitamin B12 (239-931) pg/mL Serum Folate (2.76-20.0) NG/ML TSH (0.2700-4.2000) uIU/mL Free T4 (0.93-1.71) ng/dL Ur Collection Type Cath specimen Urine Color Yellow Urine Clarity Slightly cloudy (CLEAR) Urine pH 5.5 (5.0-8.5) Ur Specific [place] <=1.005 (1.005-1.030) Urine Protein Negative (NEG) mg/dl Urine Glucose (UA) Negative (NEG) mg/dL Urine Ketones Negative (NEG) Urine Occult Blood Trace-intact H (NEG) Urine Nitrate Positive H (NEG) Urine Bilirubin Negative (NEG) Urine Urobilinogen 0.2 (0.2) EU/dL Ur Leukocyte Esterase Moderate (NEG) Urine RBC 0-1 (NONE) /hpf Urine WBC 5-10 (NONE) Ur Squamous Epith Cells None (NONE) Ur Renal Epithelial Cell None (NONE) Urine Crystals None Urine Bacteria Many (NONE) Urine Casts None (NONE) Urine Mucus None (NONE) Urine Trichomonas None (NONE) Urine Yeast None (NONE) Ur Culture Indicated? Culture set H. pylori Urease Test (NEGATIVE) 04/02/17 04/04/17 04/04/17 Range/Units 04:58 06:46 08:08 WBC 8.29 7.94 (4.8-10.8) 10^3/uL RBC 3.59 L 3.76 L (4.20-5.40) 10^6/uL Hgb 11.7 L 12.2 (12.0-16.0) g/dL Hct 34.2 L 35.3 L (37.0-47.0) % MCV 95.3 93.9 (81-99) FL MCH 32.6 H 32.4 H (27-31) PG MCHC 34.2 34.6 (33-37) g/dL RDW Std Deviation 55.6 H 55.8 H (39-50) fL RDW Coeff of Eligio 16.9 H 17.2 H (11.5-14.5) % Plt Count 169 168 (140-350) 10*3/uL MPV 11.8 11.7 (7.4-12.2) FL Immature Gran % (Auto) 0.1 0.3 (0-5) % Neut % (Auto) 80.7 H 81.7 H (50-80) % Lymph % (Auto) 10.5 9.6 L (10-50) % [place] % (Auto) 8.4 8.1 (5-15) % Eos % (Auto) 0.2 0.3 (0-8) % Baso % (Auto) 0.1 0 (0-1) % Immature Gran # (Auto) 0.01 0.02 10*3/UL Neut # (Auto) 6.68 6.50 10*3/UL Lymph # (Auto) 0.87 0.76 10*3/uL [place] # (Auto) 0.70 0.64 (0.3-0.8) 10*3/UL Eos # (Auto) 0.02 0.02 10*3/UL Baso # (Auto) 0.01 0 10*3/UL WBC Morphology Comment Normal morphology Normal morphology (NORM) Plt Morphology Comment Normal morphology Normal morphology (NORM) RBC Morph Comment Normal morphology Normal morphology (NORM) PT (9.7-11.4) secs INR (0.00-5.90) N/A VBG pH (7.32-7.42) VBG pCO2 (45-55) mmHg VBG HCO3 (22-26) mmol/L VBG Base Excess (-2-2) MMOL/L Sodium 135 132 L (135-145) meq/L Potassium 4.7 4.8 (3.8-5.2) meq/L Chloride 108 109 (98-112) meq/L Carbon Dioxide 25 21 L (23-33) meq/L Anion Gap 2 L 2 L (5-20) BUN 6 L 5 L (7-22) mg/dL Creatinine 0.7 0.6 (0.50-1.20) mg/dL Estimated GFR [employer] (>60 ml/min/1.73m(2)) BUN/Creatinine Ratio 8.57 8.33 (6-20) Glucose 98 90 (78-110) mg/dL Calculated Osmolality 277.0 270.0 (267-292) mOsm/kg Lactic Acid (0.70-2.10) MMOL/L Calcium 7.3 L 7.2 L (8.7-10.7) mg/dL Magnesium 2.3 (1.6-2.4) mg/dL Total Bilirubin 0.4 (0.3-1.2) mg/dL AST 47 H (8-39) IU/L ALT 53 H (9-52) IU/L Alkaline Phosphatase 162 H (38-126) IU/L Troponin I (< 0.040) ng/mL C-Reactive Protein (0.0-0.9) mg/dL NT-Pro-B Natriuret Pep (0-450) PG/ML Total Protein 4.0 L (6.1-8.0) g/dL Albumin 1.6 L (3.5-4.8) g/dL Globulin 2.4 L (2.50-4.10) g/dL Albumin/Globulin Ratio 0.60 L (1.3-2.0) mg/g Prealbumin 7 L (19 - 38) mg/dL Lipase 15 L (23-300) IU/L Vitamin B12 > 1000 H (239-931) pg/mL Serum Folate 17.9 (2.76-20.0) NG/ML TSH 2.81 (0.2700-4.2000) uIU/mL Free T4 1.06 (0.93-1.71) ng/dL Ur Collection Type Urine Color Urine Clarity (CLEAR) Urine pH (5.0-8.5) Ur Specific [place] (1.005-1.030) Urine Protein (NEG) mg/dl Urine Glucose (UA) (NEG) mg/dL Urine Ketones (NEG) Urine Occult Blood (NEG) Urine Nitrate (NEG) Urine Bilirubin (NEG) Urine Urobilinogen (0.2) EU/dL Ur Leukocyte Esterase (NEG) Urine RBC (NONE) /hpf Urine WBC (NONE) Ur Squamous Epith Cells (NONE) Ur Renal Epithelial Cell (NONE) Urine Crystals Urine Bacteria (NONE) Urine Casts (NONE) Urine Mucus (NONE) Urine Trichomonas (NONE) Urine Yeast (NONE) Ur Culture Indicated? H. pylori Urease Test Negative (NEGATIVE) 04/07/17 Range/Units 10:18 WBC 6.64 (4.8-10.8) 10^3/uL RBC 3.28 L (4.20-5.40) 10^6/uL Hgb 10.8 L (12.0-16.0) g/dL Hct 31.2 L (37.0-47.0) % MCV 95.1 (81-99) FL MCH 32.9 H (27-31) PG MCHC 34.6 (33-37) g/dL RDW Std Deviation 54.6 H (39-50) fL RDW Coeff of Eligio 16.7 H (11.5-14.5) % Plt Count 178 (140-350) 10*3/uL MPV 11.4 (7.4-12.2) FL Immature Gran % (Auto) 0.5 (0-5) % Neut % (Auto) 81.1 H (50-80) % Lymph % (Auto) 8.1 L (10-50) % [place] % (Auto) 9.5 (5-15) % Eos % (Auto) 0.6 (0-8) % Baso % (Auto) 0.2 (0-1) % Immature Gran # (Auto) 0.03 10*3/UL Neut # (Auto) 5.39 10*3/UL Lymph # (Auto) 0.54 10*3/uL [place] # (Auto) 0.63 (0.3-0.8) 10*3/UL Eos # (Auto) 0.04 10*3/UL Baso # (Auto) 0.01 10*3/UL WBC Morphology Comment See comments (NORM) Plt Morphology Comment Normal morphology (NORM) RBC Morph Comment Normal morphology (NORM) PT (9.7-11.4) secs INR (0.00-5.90) N/A VBG pH (7.32-7.42) VBG pCO2 (45-55) mmHg VBG HCO3 (22-26) mmol/L VBG Base Excess (-2-2) MMOL/L Sodium 130 L (135-145) meq/L Potassium 3.9 (3.8-5.2) meq/L Chloride 103 (98-112) meq/L Carbon Dioxide 25 (23-33) meq/L Anion Gap 2 L (5-20) BUN 6 L (7-22) mg/dL Creatinine 0.5 (0.50-1.20) mg/dL Estimated GFR (>60 ml/min/1.73m(2)) BUN/Creatinine Ratio 12.00 (6-20) Glucose 101 (78-110) mg/dL Calculated Osmolality 267.0 (267-292) mOsm/kg Lactic Acid (0.70-2.10) MMOL/L Calcium 7.0 L (8.7-10.7) mg/dL Magnesium (1.6-2.4) mg/dL Total Bilirubin (0.3-1.2) mg/dL AST (8-39) IU/L ALT (9-52) IU/L Alkaline Phosphatase (38-126) IU/L Troponin I (< 0.040) ng/mL C-Reactive Protein (0.0-0.9) mg/dL NT-Pro-B Natriuret Pep (0-450) PG/ML Total Protein (6.1-8.0) g/dL Albumin (3.5-4.8) g/dL Globulin (2.50-4.10) g/dL Albumin/Globulin Ratio (1.3-2.0) mg/g Prealbumin (19 - 38) mg/dL Lipase (23-300) IU/L Vitamin B12 (239-931) pg/mL Serum Folate (2.76-20.0) NG/ML TSH (0.2700-4.2000) uIU/mL Free T4 (0.93-1.71) ng/dL Ur Collection Type Urine Color Urine Clarity (CLEAR) Urine pH (5.0-8.5) Ur Specific [place] (1.005-1.030) Urine Protein (NEG) mg/dl Urine Glucose (UA) (NEG) mg/dL Urine Ketones (NEG) Urine Occult Blood (NEG) Urine Nitrate (NEG) Urine Bilirubin (NEG) Urine Urobilinogen (0.2) EU/dL Ur Leukocyte Esterase (NEG) Urine RBC (NONE) /hpf Urine WBC (NONE) Ur Squamous Epith Cells (NONE) Ur Renal Epithelial Cell (NONE) Urine Crystals Urine Bacteria (NONE) Urine Casts (NONE) Urine Mucus (NONE) Urine Trichomonas (NONE) Urine Yeast (NONE) Ur Culture Indicated? H. pylori Urease Test (NEGATIVE) Discharge instruction Diet regular activity as started Medications Medication Instructions Recorded Confirmed Type Multivitamin Tab [Thera Tab] 1 tab PO DAILY #30 tablet 01/10/15 03/31/17 Rx Aspirin [Aspir 81] 1 tab PO DAILY tab 12/18/15 03/31/17 History Lactose-Reduced Food [Ensure Plus] 8 oz PO 4-5X day #237 ml 12/18/15 03/31/17 Clinic Vit A,C & E/Lutein/Minerals 1 each PO BID tab 12/18/15 03/31/17 History [Ocuvite with Lutein Tablet] Pantoprazole Sodium 1 tab ORAL QD #30 tab 11/17/16 03/31/17 Clinic Oxycodone HCl/Acetaminophen 1 tab PO Q6H PRN #120 tab 01/05/17 03/31/17 Clinic [Oxycodone-Acetaminophen 10-325] Tiotropium Morgan [Spiriva] 1 puff INH DAILY #1 inh 02/11/17 03/31/17 Clinic Pantoprazole Sodium [Protonix] 40 mg PO BID AC tab 04/09/17 Rx Vancomycin Oral Soln 125 mg PO Q6H bottle 04/09/17 Rx Venlafaxine HCl ER [Effexor Xr] 37.5 mg PO DAILY cap.er.24h 04/09/17 Rx Follow-up with [facility] Condition at discharge was stable for discharge Exam - Vitals Vital Signs: Vital Signs Temperature 98.5 F Temperature Source Temporal Artery Scan Pulse Rate [Apical] 80 Pulse Rate [Pulse Oximeter] 81 Pulse Rate 84 Respiratory Rate 18 Blood Pressure [Left Arm] 105/51 Blood Pressure [Right Arm] 145/64 Blood Pressure 126/72 Pulse Ox 93 Oxygen Flow Rate 2 Oxygen Flow Rate 3 Oxygen Delivery Method Nasal Cannula Height 5 ft 4 in Weight 115 lb 15.41 oz Patient Problems - Patient Problem List (1) C. difficile colitis Status: Acute (2) Gastritis Status: Acute Qualifiers: Gastritis type: superficial Chronicity: chronic Gastritis bleeding : with bleeding Qualified Description: Chronic superficial gastritis with bleeding Qualifier Code(s): (K29.31) Chronic superficial gastritis with bleeding (3) Weakness Status: Acute (4) UTI (urinary tract infection) Status: Acute Qualifiers: Urinary tract infection type: acute cystitis Hematuria presence: without hematuria Qualified Description: Acute cystitis without hematuria Qualifier Code(s): (N30.00) Acute cystitis without hematuria (5) Severe protein-calorie malnutrition Status: Acute
[2017-04-09 13:05] VITALS: RESP 20; TEMP 97.6
--- NOTE | 2017-04-09 15:06 | OT.PROG ---
Progress Note Progress Note: S: Pt stated she was very tired and feeling weak today. Pt stated that her neck was hurting from her neck surgery. O: Pt completed UE strengthening activities with yellow therabands to include shoulder flex/ext, add/abd, irot/erot. Pt demos limited mobility in UE. A: Pt continues to demo significant weakness in UE and no tolerance for standing activities. She would continue to benefit from skilled OT services for UE strengthening and endurance. P: Continue POC
--- NOTE | 2017-04-09 15:08 | OT.PROG ---
Progress Note Progress Note: S: Pt stated she is feeling better today but continues to have pain in neck. O: Pt completed 3/3 sit to stands with mod assist for stability. Pt utilized walker to perform a standing pivot to sit on scale. Pt completed bed mobility task with mod assist. A: Pt continues to demo weakness in UE. She would benifit from skilled OT services to increase strength and endurance during functional tasks. P: Continue POC
== END 2017-04-09 14:06 | DRG 689 ==
LOC: ER 16:43 → MED/SURG 21:48 → OPS 04-04 07:47 → MED/SURG 04-04 08:25
PROVIDERS: ADMIT Internal Medicine; ATTEND Family Medicine
PROC: 0DB78ZX Excision of Stomach, Pylorus, Via Natural or Artificial Opening Endoscopic, Diagnostic (ICD-10-PCS; principal; 2017-04-04 08:00)
DX: K52.9 Noninfective gastroenteritis and colitis, unspecified (principal); R11.2 Nausea with vomiting, unspecified; N39.0 Urinary tract infection, site not specified; E43 Unspecified severe protein-calorie malnutrition; A04.7 Enterocolitis due to Clostridium difficile; N10 Acute pyelonephritis; J90 Pleural effusion, not elsewhere classified; K29.70 Gastritis, unspecified, without bleeding; R53.1 Weakness; J44.9 Chronic obstructive pulmonary disease, unspecified; E83.42 Hypomagnesemia; K20.9 Esophagitis, unspecified; K29.80 Duodenitis without bleeding; R91.1 Solitary pulmonary nodule
CPT/HCPCS: 36415; 70551; 71020; 71250; 72040; 74177; 76700; 80048; 80053; 81001; 81003; 82607; 82746; 82803; 83605; 83690; 83735; 83880; 84134; 84439; 84443; 84484; 85025; 85610; 86140; 87040; 87077; 87088; 87186; 87339; 87493; 93005; 93010; 93306; 93971; 94640; 94761; 96361; 96365; 96375; 97110; 97161; 97166; 97530; 97535; 99284; J0696; J0698; J1644; J2001; J2270; J2405; J3475; J3490; J7030; J7050; J7120

== ENCOUNTER → 2017-05-01 | Outpatient (CLI) | payer OTHER ==
[2017-05-01 11:01] LABS: BASOPHILS # (AUTO) 0.01 10*3/UL; BASOPHILS % (AUTO) 0.1 % (0-1); EOSINOPHILS # (AUTO) 0.01 10*3/UL; EOSINOPHILS % (AUTO) 0.1 % (0-8); HEMATOCRIT 40.4 % (37.0-47.0); HEMOGLOBIN 13.5 g/dL (12.0-16.0); LYMPHOCYTES # (AUTO) 0.45 10*3/uL; MEAN CORPUSCULAR HEMOGLOBIN 32.6 PG (27-31); MEAN CORPUSCULAR HGB CONC 33.4 g/dL (33-37); MEAN CORPUSCULAR VOLUME 97.6 FL (81-99); MEAN PLATELET VOLUME 10.8 FL (7.4-12.2); MONOCYTES # (AUTO) 0.34 10*3/UL (0.3-0.8); MONOCYTES % (AUTO) 4.4 % (5-15); NEUTROPHILS # (AUTO) 6.97 10*3/UL; NEUTROPHILS % (AUTO) 89.3 % (50-80); RED BLOOD COUNT 4.14 10^6/uL (4.20-5.40)
[2017-05-01 12:10] LABS: PLATELET MORPHOLOGY COMMENT NORMAL MORPHOLOGY (NORM); RBC MORPHOLOGY COMMENT NORMAL MORPHOLOGY (NORM); WBC MORPHOLOGY COMMENT NORMAL MORPHOLOGY (NORM)
== END ==
LOC: LAB 10:25
PROVIDERS: ATTEND Internal Medicine
DX: R62.7 Adult failure to thrive (principal); I10 Essential (primary) hypertension
CPT/HCPCS: 36415; 85025